=== PATIENT | female | born 1935 | race Caucasian/White ===

== ENCOUNTER 2017-06-07 11:25 | Emergency (ER) | payer MEDICARE, BC ==
[2017-06-07 12:52] LABS: Add Diff/Slide Review? Slide Review Added; Comments Flag Yes; Hematocrit 36 % (35-47); Hemoglobin 12.3 g/dl (12.0-16.0); Mean Corpuscular HGB Conc 34 g/dl (31-36); Mean Corpuscular Hemoglobin 32 pg (27-31); Mean Corpuscular Volume 95 fL (80-97); Mean Platelet Volume 8 um3 (7.4-10.4); Red Blood Count 3.81 10^6/ul (4.0-5.4); Red Cell Distribution Width 14 % (10.5-15); White Blood Count 9.9 10^3/ul (3.5-10.8)
[2017-06-07 13:08] LABS: Albumin 3.4 g/dL (3.2-5.2); BUN/Creatinine Ratio 19.9 (8-20); C Reactive Protein 113.86 mg/L (< 5.00); EGFR African American 38.1 (>60); EGFR Non-African American 29.6 (>60); Globulin 3.6 g/dL (2-4); Magnesium 1.6 mg/dL (1.9-2.7); Potassium 4.4 mmol/L (3.5-5.0); Total Bilirubin 0.8 mg/dL (0.2-1.0)
--- NOTE | 2017-06-07 13:11 | RAD ---
Indication: Weakness. Disoriented. Comparison: May 31, 2016 Technique: Sitting AP and lateral chest views. Report: Elevated lung volumes and patchy rarefaction of the interstitial markings. No pulmonary consolidation, focal pulmonary lesion, pleural effusion, or thorax. Tip of RIGHT side tunnel central venous catheter at the level of the superior vena cava directed central. Unchanged cardiomegaly. Prominent central pulmonary vasculature with peripheral attenuation. Mildly tortuous descending thoracic aorta. RIGHT axillary surgical clips. Advanced arthropathy of the shoulders. Surgical anchors at the LEFT humeral head. IMPRESSION: Stigmata of obstructive lung disease. Stigmata of probable pulmonary arterial hypertension.
[2017-06-07 13:27] LABS: Troponin I 0.06 ng/mL (<0.04)
[2017-06-07 13:48] LABS: TSH (Thyroid Stimulating Horm) 2.42 mcIU/mL (0.34-5.60)
[2017-06-07 15:29] LABS: Urine Bacteria 1+ (Absent); Urine Bilirubin Negative (Negative); Urine Glucose Negative (Negative); Urine Nitrite Positive (Negative)
[2017-06-07] MEDS ORDERED: Ciprofloxacin TAB* 500 MG PO ONE (15:37)
[2017-06-07] MEDS ORDERED: Ciprofloxacin 400MG IVPREMIX(* 400 MG/200 ML BAG IVPB ONE (16:54)
[2017-06-07] MEDS ORDERED: Ciprofloxacin 400MG IVPREMIX(* 400 MG/200 ML BAG ONE (16:58)
[2017-06-07] MEDS ORDERED: Albuterol/Ipratropium NEB.SOL* Albuterol 2.5 MG/Ipratropium 0.5 MG 3 ML INH ONE (19:37)
[2017-06-07] MEDS ORDERED: Ondansetron INJ* 2 MG/ML VIAL ONE (19:59)
[2017-06-07] MEDS ORDERED: Ondansetron INJ* 2 MG/ML VIAL IV ONE ×2 (20:14→20:48)
--- NOTE | 2017-06-07 21:06 | ED ---
Hallie Akins Gabriel, scribed for Luc Richardson MD on 06/07/17 at 1209 . Abdominal Pain/Female - HPI Summary HPI Summary: This patient is a 81 year old F [facility] [place] by daughter with a chief complaint of ABD/CV pain since a week ago. The patient rates the pain 5/10 in severity. Daughter reports the pt has increased weakness and more disoriented than usual. Daughter states she slid out her bed twice recently. Also she recently had her PCP tell her kidney function and this with the CV pain she is concerned for a kidney infection. Pt is disoriented and her speech makes no sense. - History of Current Complaint Chief Complaint: EDAltMentalStatus Stated Complaint: WEAKNESS,DISORIENTED Time Seen by Provider: 06/07/17 11:58 Hx Obtained From: Patient Hx From Patient Unobtainable Due To: Dementia Hx Last Menstrual Period: n/a Onset/Duration: Lasting Weeks - 1, Still Present Pain Intensity: 5 Pain Scale Used: 0-10 Numeric Radiates: Yes Radiates to: Other - CV Associated Signs and Symptoms: Positive: Other: - disoriented and weakness Allergies/Adverse Reactions: Allergies Allergy/AdvReac Type Severity Reaction Status Date / Time Codeine AdvReac Hallucinati Verified 06/07/17 17:10 ons Narcotic AdvReac Hallucinati Uncoded 06/07/17 17:10 ons PMH/Surg Hx/FS Hx/Imm Hx Endocrine/Hematology History: Denies: Hx Diabetes Cardiovascular History: Reports: Hx Hypertension Denies: Hx Pacemaker/ICD Respiratory History: Reports: Hx Asthma Sensory History: Reports: Hx Hearing Aid - will remove Neurological History: Reports: Hx Dementia Psychiatric History: Denies: Hx Panic Disorder - Cancer History Cancer Type, Location and Year: B/L breast - Surgical History Surgery Procedure, Year, and Place: breasts, bladder 2009, varicose veins, urethral sling, left hip ORIF 08/2012, PORT IN CHEST. Infectious Disease History: No Infectious Disease History: Denies: Traveled Outside the [place] in Last 30 Days - Family History Known Family History: Negative: Diabetes - Social History Alcohol Use: None Hx Substance Use: No Substance Use Type: Reports: None Hx Tobacco Use: No Smoking Status (MU): Never Smoked Tobacco Review of Systems Positive: Abdominal Pain - with CV pain Positive: Weakness Psychological: Other - increased disorientation/confusion All Other Systems Reviewed And Are Negative: Yes Physical Exam - Summary Physical Exam Summary: Appearance: The patient is well-nourished in no acute distress and in no acute pain. Skin: The skin is warm and dry and skin color reflects adequate perfusion. HEENT: ~The head is normocephalic and atraumatic. The pupils are equal and reactive. The conjunctivae are clear and without drainage. ~Nares are patent and without drainage. ~Mouth reveals moist mucous membranes and the throat is without erythema and exudate. ~The external ears are intact. The ear canals are patent and without drainage. The tympanic membranes are intact. Neck: the neck is supple with full range of motion and non-tender. There are no carotid bruits. ~There is no neck vein distension. Respiratory: Chest is non-tender. ~Lungs are clear to auscultation with slightly decreased breath spends of the left. Cardiovascular: Heart is regular rate and rhythm. ~There is no murmur or rub auscultated. ~ pulses are symmetrical and equal. Abdomen: The abdomen is soft and non-tender. ~There are normal bowel sounds heard in all four quadrants and there is no organomegaly palpated. Musculoskeletal: There is no back tenderness noted. ~Extremities are non-tender with full range of motion. ~There is good capillary refill. Chronic venous stasis in LE with mild edema Neurological: Patient is alert and oriented to person, place and time. ~The patient has symmetrical motor strength in all four extremities. ~Cranial nerves are grossly intact. Deep tendon reflexes are symmetrical and equal in all four extremities. Psychiatric: The patient has an appropriate affect and does not exhibit any anxiety or depression. Triage Information Reviewed: Yes Vital Signs On Initial Exam: Initial Vitals Temp Pulse Resp BP Pulse Ox 99.1 F 74 16 111/55 95 06/07/17 11:28 06/07/17 11:28 06/07/17 11:28 06/07/17 11:28 06/07/17 11:28 Vital Signs Reviewed: Yes Diagnostics - Vital Signs Vital Signs Temp Pulse Resp BP Pulse Ox 06/07/17 11:28 99.1 F 74 16 111/55 95 - Laboratory Lab Results: Lab Results 06/07/17 06/07/17 06/07/17 Range/Units 12:41 12:41 12:41 WBC 9.9 (3.5-10.8) 10^3/ul RBC 3.81 L (4.0-5.4) 10^6/ul Hgb 12.3 (12.0-16.0) g/dl Hct 36 (35-47) % MCV 95 (80-97) fL MCH 32 H (27-31) pg MCHC 34 (31-36) g/dl RDW 14 (10.5-15) % Plt Count 155 (150-450) 10^3/ul MPV 8 (7.4-10.4) um3 Neut % (Auto) 91.2 H (38-83) % Lymph % (Auto) 3.9 L (25-47) % Bradford % (Auto) 4.8 (1-9) % Eos % (Auto) 0 (0-6) % Baso % (Auto) 0.1 (0-2) % Absolute Neuts (auto) 9.0 H (1.5-7.7) 10^3/ul Absolute Lymphs (auto) 0.4 L (1.0-4.8) 10^3/ul Absolute Monos (auto) 0.5 (0-0.8) 10^3/ul Absolute Eos (auto) 0 (0-0.6) 10^3/ul Absolute Basos (auto) 0 (0-0.2) 10^3/ul Absolute Nucleated RBC 0 10^3/ul Nucleated RBC % 0 Sodium 133 (133-145) mmol/L Potassium 4.4 (3.5-5.0) mmol/L Chloride 98 L (101-111) mmol/L Carbon Dioxide 28 (22-32) mmol/L Anion Gap 7 (2-11) mmol/L BUN 33 H (6-24) mg/dL Creatinine 1.66 H (0.51-0.95) mg/dL Est GFR ( Amer) 38.1 (>60) Est GFR (Non-Af Amer) 29.6 (>60) BUN/Creatinine Ratio 19.9 (8-20) Glucose 105 H (70-100) mg/dL Lactic Acid 1.0 (0.5-2.0) mmol/L Calcium 9.0 (8.6-10.3) mg/dL Magnesium 1.6 L (1.9-2.7) mg/dL Total Bilirubin 0.80 (0.2-1.0) mg/dL AST 18 (13-39) U/L ALT 10 (7-52) U/L Alkaline Phosphatase 63 (34-104) U/L Troponin I 0.06 H* (<0.04) ng/mL C-Reactive Protein 113.86 H (< 5.00) mg/L Total Protein 7.0 (6.4-8.9) g/dL Albumin 3.4 (3.2-5.2) g/dL Globulin 3.6 (2-4) g/dL Albumin/Globulin Ratio 0.9 L (1-3) TSH 2.42 (0.34-5.60) mcIU/mL Urine Color Urine Appearance Urine pH (5-9) Ur Specific [place] (1.010-1.030) Urine Protein (Negative) Urine Ketones (Negative) Urine Blood (Negative) Urine Nitrate (Negative) Urine Bilirubin (Negative) Urine Urobilinogen (Negative) Ur Leukocyte Esterase (Negative) Urine WBC (Auto) (Absent) Urine RBC (Auto) (Absent) Ur Squamous Epith Cells (Absent) Urine Bacteria (Absent) Urine Glucose (Negative) 06/07/17 06/07/17 Range/Units 15:07 17:05 WBC (3.5-10.8) 10^3/ul RBC (4.0-5.4) 10^6/ul Hgb (12.0-16.0) g/dl Hct (35-47) % MCV (80-97) fL MCH (27-31) pg MCHC (31-36) g/dl RDW (10.5-15) % Plt Count (150-450) 10^3/ul MPV (7.4-10.4) um3 Neut % (Auto) (38-83) % Lymph % (Auto) (25-47) % Bradford % (Auto) (1-9) % Eos % (Auto) (0-6) % Baso % (Auto) (0-2) % Absolute Neuts (auto) (1.5-7.7) 10^3/ul Absolute Lymphs (auto) (1.0-4.8) 10^3/ul Absolute Monos (auto) (0-0.8) 10^3/ul Absolute Eos (auto) (0-0.6) 10^3/ul Absolute Basos (auto) (0-0.2) 10^3/ul Absolute Nucleated RBC 10^3/ul Nucleated RBC % Sodium (133-145) mmol/L Potassium (3.5-5.0) mmol/L Chloride (101-111) mmol/L Carbon Dioxide (22-32) mmol/L Anion Gap (2-11) mmol/L BUN (6-24) mg/dL Creatinine (0.51-0.95) mg/dL Est GFR ( Amer) (>60) Est GFR (Non-Af Amer) (>60) BUN/Creatinine Ratio (8-20) Glucose (70-100) mg/dL Lactic Acid (0.5-2.0) mmol/L Calcium (8.6-10.3) mg/dL Magnesium (1.9-2.7) mg/dL Total Bilirubin (0.2-1.0) mg/dL AST (13-39) U/L ALT (7-52) U/L Alkaline Phosphatase (34-104) U/L Troponin I 0.06 H* (<0.04) ng/mL C-Reactive Protein (< 5.00) mg/L Total Protein (6.4-8.9) g/dL Albumin (3.2-5.2) g/dL Globulin (2-4) g/dL Albumin/Globulin Ratio (1-3) TSH (0.34-5.60) mcIU/mL Urine Color Yellow Urine Appearance Cloudy Urine pH 6.0 (5-9) Ur Specific [place] 1.010 (1.010-1.030) Urine Protein 2+(100 mg/dl) H (Negative) Urine Ketones Negative (Negative) Urine Blood 2+ H (Negative) Urine Nitrate Positive H (Negative) Urine Bilirubin Negative (Negative) Urine Urobilinogen Negative (Negative) Ur Leukocyte Esterase 3+ H (Negative) Urine WBC (Auto) 3+(>20/hpf) H (Absent) Urine RBC (Auto) 2+(6-10/hpf) H (Absent) Ur Squamous Epith Cells Present H (Absent) Urine Bacteria 1+ H (Absent) Urine Glucose Negative (Negative) Result Diagrams: 06/07/17 12:41 12/10/17 12:41 Lab Statement: Any lab studies that have been ordered have been reviewed, and results considered in the medical decision making process. - Radiology CXR Radiology Interpretation Completed By: Radiologist - per radiologist, Stigmata of obstructive lung disease. Stigmata of probable pulmonary arterial hypertension. ED physician has reviewed this radiology report. 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 She is not speaking much. He daughter is doing most of the dictating. It was also discussed with the daughter the options of admitting her or sending her home. She wishes to send her home. Abdominal Pain Fem Course/Dx - Course Course Of Treatment: Ms. Light spent a good deal of time in the ED today. She had been seeming weaker and more confused to her daughter for the last day or so. She had been C/O left side pain and pointed vaguely to her left anterolateral lower chest wall. She wasn't really tender for me but her daughter reported that she had been tender there and more towards the back for her. She was found to have a low indeterminant troponin and a UTI. Her daughter is a RN and preferred to take her home if possible as she sundowns in the hospital. We struggled to try to make that happen but she was just a bit too sick. She is being admitted to the hospitalist service with a diagnosis of pyelonephritis. - Diagnoses Provider Diagnoses: Pyelonephritis - Critical Care Time Critical Care Time: 30-74 min Discharge - Discharge Plan Condition: Stable Disposition: HOME Prescriptions: Nitrofurantoin Monohyd Macro [Macrobid] 100 mg PO BID #10 cap Nitrofurantoin Monohyd Macro [Macrobid] 100 mg PO BID #20 cap Patient Education Materials: Nitrofurantoin (By mouth), Kidney Infection (ED) Referrals: Vane Butler MD [Primary Care Provider] - 3 Days Additional Instructions: Return to the emergency department for new or worsening symptoms. The documentation as recorded by the Hallie stewart Gabriel accurately reflects the service I personally performed and the decisions made by me, Luc Richardson MD.
[2017-06-07] MEDS ORDERED: Ziprasidone IM INJ* 20 MG/ML VIAL IM ONE (21:24)
[2017-06-07] MEDS ORDERED: Acetaminophen SUPP* 650 MG SUPP PR PRN (21:28)
[2017-06-07] MEDS ORDERED: NS 0.9% 1000 ML* 1,000 ML IV SCH (21:30)
[2017-06-07] MEDS ORDERED: Acetaminophen SUPP* 650 MG SUPP ONE (21:35)
[2017-06-07] MEDS ORDERED: Albuterol 2.5 MG/3 ML NEB.SOL* (0.083%) INH PRN (21:41)
[2017-06-07] MEDS ORDERED: Digoxin IV* 0.5 MG/2 ML AMP (0.25 MG/ML) IV SLOW PU SCH (21:41)
[2017-06-07] MEDS ORDERED: Magnesium Sulfate 2 GM IV* 2 GM/50 ML BAG IVPB ONE (21:42)
[2017-06-07 21:58] LABS: Digoxin 2.4 ng/ml (0.8-2.0)
[2017-06-07] MEDS ORDERED: Heparin VIAL(*) 5000 UNITS/ML VIAL (FIVE THOUSAND) SUBCUT SCH (22:00)
[2017-06-07] MEDS ORDERED: cefTRIAXone(*) 1 GM in NS 0.9% 50 ML* 50 ML IVPB SCH (22:00)
[2017-06-07] MEDS ORDERED: Piperacillin/Tazobac ADVAN(*) 3.375 GM in NS 0.9% 100 ML* 100 ML IVPB ONE (22:25)
[2017-06-07] MEDS ORDERED: Norepinephrine 16MCG/ML IVPRE* 4,000 MCG/250 ML BAG IV ONE (23:21)
[2017-06-07] MEDS: NS 0.9% 1000 ML* 2,000 ML IV ONE (23:24)
[2017-06-07] MEDS ORDERED: NS 0.9% 250 ML* 246 ML with Norepinephrine VIAL* 4 MG IV ONE ×2 (23:45)
[2017-06-08] MEDS ORDERED: Diltiazem TAB* 30 MG PO SCH
[2017-06-08] MEDS ORDERED: Norepinephrine 16MCG/ML IVPRE* 4,000 MCG/250 ML BAG IV SCH ×3 (01:00→02:00)
[2017-06-08] MEDS ORDERED: NS 0.9% 1000 ML* 1,000 ML IV ONE (01:10)
[2017-06-08 01:56] VITALS: BP 96/69
--- NOTE | 2017-06-08 04:14 | CONS ---
CC: Dr. Butler * CONSULTATION REPORT: DATE OF CONSULT: 06/07/17 REQUESTING PHYSICIAN: Dr. Richardson ATTENDING PHYSICIAN WHILE IN HOSPITAL: Travis Cordoba MD (report dictated by Torres Vazquez NP) REASON FOR MEDICAL CONSULTATION: Evaluation of patient for admission. HISTORY OF PRESENT ILLNESS: Ms. Light is an 81-year-old female patient with a significant history of dementia, AFib, asthma, CAD, hypertension, breast cancer and arthritis. She comes in to the ED today, the patient really is not able to give much history at this point as she is delirious and she has a history of dementia, most of the history is obtained from her daughter Meyrl. The patient apparently since this morning and yesterday last night complaining of left flank pain, left hip pain, daughter evaluated her and pressed on her left flank and back and she had a significant amount of discomfort. She was concerned today when the patient developed a fever and she was becoming more confused. She was concerned that maybe there was something wrong with her kidneys and the patient's daughter brought her in for evaluation. In the ED, it was noted that she actually looked well initially when she was evaluated and she was going to be sent home. Prior to discharge, she started having vomiting and spiked a fever and we were asked to evaluate for admission. PAST MEDICAL HISTORY: Significant for, 1. AFib. 2. Asthma. 3. CAD. 4. Hypertension. 5. Breast cancer. 6. Arthritis. PAST SURGICAL HISTORY: The patient has had a left hip ORIF and she has had a bladder sling. HOME MEDICATIONS: Include, 1. Warfarin 4 mg p.o. at 1700 2. Digoxin 0.125 mg p.o. daily. 3. Ventolin 1 puff daily as needed. 4. Zoloft 50 mg daily. 5. Lisinopril 10 mg daily. 6. Diltiazem 180 mg daily. 7. B12 1000 mcg p.o. daily. ALLERGIES TO MEDICATIONS: Include CODEINE. FAMILY HISTORY: The daughter states that patient's mother during childbirth and the father's history with no reports of cancer, stroke, diabetes or heart disease. SOCIAL HISTORY: The patient is a nonsmoker and does not drink alcohol. Surrogate decision maker is her daughter Meryl. REVIEW OF SYSTEMS: Unable to be obtained from the patient, but the daughter does state that there is reports of flank pain in addition to this, also reports of fever. I am unable to attempt a complete review because of the underlying delirium and dementia. PHYSICAL EXAMINATION: Blood pressure 134/92, pulse 117, respirations 21, O2 sat at 1999 was 87%, and is now 98%. Her temperature now is 103. When she first came in, her temperature was 99.1. Blood pressure 111/55, pulse 74, respirations 16, O2 sat 95%. General: At this time, Ms. Light is an 81-year- old female patient. She is sitting in the ER stretcher. She does appear to be having rigors. She is shaking. She appears to be on a moderate amount of distress. She does appear to be restless. HEENT: Atraumatic. Eyes: Sclerae anicteric. Not pale. Throat: Oral mucosa appears to be dry. No oropharyngeal erythema. Heart: Sounds S1 and S2, irregularly irregular rate. No murmurs, rubs or gallops. Lungs: Clear to auscultation bilaterally. No wheezes, rales or rhonchi. Abdomen: Soft, flat. There is CVA tenderness on the left side. Extremities: Pulses are 2+ throughout. No peripheral edema. Neurologically: She will awaken to her name only, but she is again delirious. She is restless. She is calling out. She had no gross obvious focal deficits. Her skin was intact. LABORATORY DATA/DIAGNOSTIC DATA: WBC 9.9, RBC at 3.81, hemoglobin 12.3, hematocrit 36, platelet count of 155. INR 3.5. Sodium 133, potassium 4.4, chloride 98, bicarb 28, BUN 33, creatinine 1.66, glucose 105. Lactic 1.1, repeat lactic at 2100 was 7.9. Her calcium was 9, mag 1.6. Total bili 0.8, AST 18, ALT 10, alk phos 63. Troponin was 0.06. CRP was 113. Albumin was 3.4. TSH was 2.42. Urine showed 2+ protein, 2+ blood, positive nitrite, 2+ leukocyte esterase. The digoxin level was 2.4. She did have a chest x-ray, stigmata of chronic obstructive lung disease, stigmata of probable pulmonary arterial hypertension. She had an EKG initially when she came into the ED which showed atrial fibrillation with right bundle- branch block. She had T-wave inversions in the V1, 2 and 3. She has had inversions in the past. They are pretty more pronounced now. No ST elevations were noted. The AFib is not new. She had a renal ultrasound obtained, we are awaiting official imaging, but does appear that her ureter on the left side does appear to be enlarged. Old medical records were reviewed. ASSESSMENT: Ms. Light is an 81-year-old female patient coming in to the ED today with complaints of left flank pain and found to have a urinary tract infection. She was initially going to be discharged; however, while down in the ED, around 9 o'clock tonight, she started vomiting. In addition to this, was noted to have a significant fever of 103. She had a significant CVA tenderness , we were asked to evaluate. I evaluated the patient and while evaluating her again, she appeared to be septic and my concern was the fact that she has a urinary tract infection, significant left flank pain and there was blood in the urine, I want to make sure she had no stone or any hydronephrosis or hydroureter that would make the patient concern for obstruction as we do not have urology backup. She underwent an ultrasound and appeared that the ureter in the left side did appear to have a hydroureter; we are awaiting official report. The patient because she became septic, there was concern that this appears to be obstructive uropathy, she would need Urology, possible stent or nephrostomy tube, unfortunately, we are not able to offer that for the patient at this moment, because we do no not have Urology on- call. PLAN: I did discuss with Dr. Richardson and my attending Dr. Cordoba. I suggested giving the patient 2 L of fluid, this was before the lactic of 7.9 came back. I discussed with them, give 2 L of fluid, repeat the lactic, which is now coming back at 7.9. We placed her on Vapotherm now knowing the lactic of 7.9, give her an additional liter of fluids and then repeat that lactic in 2 hours, then I would recommend transfer to [facility] for further care. She does appear to be in severe sepsis, in septic shock. Fortunately, her blood pressure is holding, but I would like to again be aggressive. The family will be open to intubation, they would be open to possible nephrostomy tube, but again at this point, the patient needs to be transferred for high level of care for urology backup. I discussed this with Dr. Cordoba and Dr. Richardson, they are in agreement. I will continue aggressive sepsis treatment. I also would recommend giving her a dose of Zosyn and to continue to follow. I also did give her a dose of Geodon because of the extreme restlessness. I wanted to try to reduce her metabolic demand with her being so restless, agitated and climbing out of the bed. This would only increase the work of breathing, increase the heart rate and at this point because she is in severe sepsis, septic shock, I wanted to take that work away, she is now resting comfortably. She is breathing again most recently in the upper 20 and I do recommend Vapotherm early. It will be aggressive to try to avoid an intubation and I would recommend again another liter of fluids, Zosyn and transfer to higher level of care. TIME SPENT: Time spent on the consult, which is critical care time, was 60 minutes. Greater than half the time was spent [id number] with the patient obtaining my history and physical, the other half time was spent going over the plan of care with the patient. I did discuss the plan of care with my attending Dr. Cordoba, he is in agreement. TORRES VAZQUEZ NP [id number]/[facility] #: [id number] MTDBolivar
--- NOTE | 2017-06-08 07:20 | RAD ---
INDICATION: Pyelonephritis. COMPARISON: There are no prior studies available for comparison. TECHNIQUE: Multiple real-time images of the kidneys were obtained. FINDINGS: The kidneys are small in size and increased in echogenicity. The right kidney measured 7.6 x 3.8 x 3.8 cm and the left kidney measured 8.9 x 3.6 x 4.7 cm. No significant focal renal abnormality is seen. There is dilatation of the left renal calyces and renal pelvis consistent with moderate to severe hydronephrosis. In addition there is debris and echogenic material within the renal pelvis possibly representing blood products versus infection. IMPRESSION: 1. MODERATE TO SEVERE LEFT HYDRONEPHROSIS WITH ECHOGENIC DEBRIS WITHIN THE RENAL PELVIS SUGGESTIVE OF BLOOD PRODUCTS OR INFECTION. RECOMMEND CLINICAL CORRELATION. 2. SMALL KIDNEYS AND FINDINGS CONSISTENT WITH MEDICAL RENAL DISEASE.
--- NOTE | 2017-06-08 07:40 | RAD ---
INDICATION: Left flank abdominal pain. COMPARISON: Correlation is made with a renal ultrasound study of the same date. TECHNIQUE: A CT scan of the abdomen and pelvis was performed without intravenous or oral contrast. Contiguous axial sections were obtained from the lung bases through the symphysis pubis. Images were reconstructed in the coronal and sagittal planes. FINDINGS: The lung bases appear clear with the exception of minimal subsegmental atelectasis. There is a small left pleural effusion. The liver and spleen are normal in size without significant focal abnormality on this noncontrast study. There is increased density in the dependent portion of the gallbladder most consistent with gallstones. No gallbladder thickening or pericholecystic fluid is seen. The pancreas appears to be within normal limits on this unenhanced study. The adrenal glands and right kidney appear to be within normal limits. There is dilatation of the left renal calyces and pelvis. The renal pelvis is markedly distended. The left ureter appears nondistended. No renal or bladder calculi are seen. The abdominal aorta is tortuous and normal in caliber. There is moderate to severe calcific plaque present. No significant enlarged retroperitoneal lymph nodes are seen. There is a small hiatal hernia present. The stomach, small and large bowel appear nondistended. There is a moderate amount retained stool present. The appendix is not visualized. There are scattered diverticuli within the descending and sigmoid colon. There is no evidence for diverticulitis or colitis. The uterus is normal in size. No free intraperitoneal air or fluid is seen. There is a mild chronic appearing compression fracture of the superior endplate of the L4 vertebral body. There is a intramedullary supriya and femoral head nail present in the proximal left femur consistent with a prior fracture reduction. IMPRESSION: 1. SMALL LEFT PLEURAL EFFUSION. 2. MODERATE TO SEVERE LEFT HYDRONEPHROSIS WITH THE OBSTRUCTION AT THE LEVEL OF THE URETEROPELVIC JUNCTION. NO CALCULI ARE SEEN. 3. CHOLELITHIASIS. 4. MILD CHRONIC COMPRESSION FRACTURE OF THE L4 VERTEBRAL BODY.
[2017-06-08] MEDS ORDERED: Sertraline* 50 MG TAB PO SCH (09:00)
[2017-06-08] MEDS ORDERED: Warfarin TAB(*) 1 MG PO SCH (17:00)
--- NOTE | 2017-06-09 05:33 | ED ---
Jermaine Akins Thomas, deondreibed for Ginny Crouch MD on 06/07/17 at 2354 . Progress - Progress Note Progress Note: The patient is a sign out from Dr. Crouch at shift change, pending CT Abd/Pel and awaiting transfer. US Abdomen. Interpreted by radiologist. Impression: The liver is mildly enlarged measuring 17.8 cm in length with incrased echogenicity compatible with steatosis. No intrahepatic biliary dilatation. No hepatic masses visualized. There are no stones or sludge seen in the gallbladder. The gallbladder wall is normal in thickness measuring 2.4 mm. No pericholecystic fluid. Negative sonographic Flores sign reported. Mild prominence of the common bile duct measuring up to 6.5 mm. No obstructing stones seen within the visualized portions of the duct. Visualized portions of the pancreatic head and body appear grossly normal. The tail is partially obscured by overlying bowel gas. The right kidney is unremarkable. CT Abd/Pel. Interpreted by radiology. Impression: The heart is enlarged. There are coronary artery calcifications. Small left pleural effusion with overlying atelectasis and scarring at the left lung base. Scattered calcifications at the lung bases compatible with granulomas. Small hiatal hernia. There is severe left hydronephrosis and markedly distended extrarenal pelvis transitioning to a relatively decompressed ureter without evidence of an obstructing stone. Proximal structure is a consideration. There is perinephric standing. The right kidney is unremarkable. The liver, gallbladder, spleen, pancreas, and adrenal glands are without gross abnormality within the limitations of a noncontrast CT. There is no bowel distention. I spoke with Dr. Garcia, urology, and 00:15. He tells me that the patient needs to be admitted to medicine. The patient was admitted to Dr. Duncan. Re-Evaluation - Re-Evaluation First Eval Re-Evaluation Time: 20:14 Change: Worse Comment: After the nebulizer patient had an episode of emesis and got very shaky. She is not speaking much. He daughter is doing most of the dictating. It was also discussed with the daughter the options of admitting her or sending her home. She wishes to send her home. Course/Dx - Diagnoses Provider Diagnoses: Urosepsis, Left pyelonephritis, Obstructive uropathy The documentation as recorded by the Jermaine stewart Thomas accurately reflects the service I personally performed and the decisions made by me, Ginny Crouch MD.
--- NOTE | 2017-06-10 01:28 | PN ---
Progress Note - Progress Note Date of Service: 06/10/17 Note: Patient urine culture grew E coli >100,000. patient was transferred to [facility]. nelly salazar nursed called [facility] with results of urine and blood cultures on Thursday morning so no further action at this time.
--- NOTE | 2017-06-10 12:37 | ED ---
Progress - Progress Note Progress Note: The patient is a sign out from Dr. Crouch at shift change, pending CT Abd/Pel and awaiting transfer. US Abdomen. Interpreted by radiologist. Impression: The liver is mildly enlarged measuring 17.8 cm in length with incrased echogenicity compatible with steatosis. No intrahepatic biliary dilatation. No hepatic masses visualized. There are no stones or sludge seen in the gallbladder. The gallbladder wall is normal in thickness measuring 2.4 mm. No pericholecystic fluid. Negative sonographic Flores sign reported. Mild prominence of the common bile duct measuring up to 6.5 mm. No obstructing stones seen within the visualized portions of the duct. Visualized portions of the pancreatic head and body appear grossly normal. The tail is partially obscured by overlying bowel gas. The right kidney is unremarkable. CT Abd/Pel. Interpreted by radiology. Impression: The heart is enlarged. There are coronary artery calcifications. Small left pleural effusion with overlying atelectasis and scarring at the left lung base. Scattered calcifications at the lung bases compatible with granulomas. Small hiatal hernia. There is severe left hydronephrosis and markedly distended extrarenal pelvis transitioning to a relatively decompressed ureter without evidence of an obstructing stone. Proximal structure is a consideration. There is perinephric standing. The right kidney is unremarkable. The liver, gallbladder, spleen, pancreas, and adrenal glands are without gross abnormality within the limitations of a noncontrast CT. There is no bowel distention. I spoke with Dr. Garcia, urology, and 00:15. He tells me that the patient needs to be admitted to medicine. The patient was admitted to Dr. Duncan. UPDATE: Pt's prelim aerobic blood cx w/ e. coli. Urine cx reveals 100,000 e. coli as well w/ sens. Pt was transferred to [facility]. Will fax results. joe Chen, marcel. Re-Evaluation - Re-Evaluation First Eval Re-Evaluation Time: 20:14 Change: Worse Comment: After the nebulizer patient had an episode of emesis and got very shaky. She is not speaking much. He daughter is doing most of the dictating. It was also discussed with the daughter the options of admitting her or sending her home. She wishes to send her home. Course/Dx - Course Course Of Treatment: Ms. Light spent a good deal of time in the ED today. She had been seeming weaker and more confused to her daughter for the last day or so. She had been C/O left side pain and pointed vaguely to her left anterolateral lower chest wall. She wasn't really tender for me but her daughter reported that she had been tender there and more towards the back for her. She was found to have a low indeterminant troponin and a UTI. Her daughter is a RN and preferred to take her home if possible as she sundowns in the hospital. We struggled to try to make that happen but she was just a bit too sick. She is being admitted to the hospitalist service with a diagnosis of pyelonephritis. - Diagnoses Provider Diagnoses: Urosepsis, Left pyelonephritis, Obstructive uropathy - Critical Care Time Critical Care Time: 30-74 min
== END 2017-06-08 01:58 | disposition short-term general hospital (02) ==
LOC: ED 11:25
DX: N12 Tubulo-interstitial nephritis, not specified as acute or chronic (principal); N13.9 Obstructive and reflux uropathy, unspecified; Z86.79 Personal history of other diseases of the circulatory system; R10.9 Unspecified abdominal pain; R53.1 Weakness
CPT/HCPCS: 36415; 71020; 74176; 76775; 80053; 80162; 81003; 81015; 83605; 83735; 84443; 84484; 85025; 85610; 86140; 87040; 87077; 87086; 87186; 87205; 93005; 94640; 96365; 96366; 96375; 99285; A9270-GY; J0744; J2405; J2543; J3475; J3486

== ENCOUNTER 2017-06-24 01:09 | Emergency (ER) | payer MEDICARE, BC ==
--- NOTE | 2017-06-24 03:21 | ED ---
Jarrett Akins Tecjoon scribmolly for Ginny Crouch MD on 06/24/17 at 0140 . Complex/Multi-Sys Presentation - HPI Summary HPI Summary: This patient is a 81 year old female BIBA to [facility] accompanied by daughter with a chief complaint of cuts on nephrostomy tube to left side since today at 0000. Patient has had the nephrostomy tube for 2 weeks. Patients daughter states that patient has been irritated by the tube for a few days. Patients daughter states that she cut the tube herself with nail clippers, but claims the patient is unsure of the memory. Patients daughter states that they plan on putting in a stent on June 30. Patient has a hx of dementia. Patient denies fever. - History Of Current Complaint Chief Complaint: EDGeneral Time Seen by Provider: 06/24/17 01:19 Hx Obtained From: Patient, Family/Supervisor Gear Repair Hx From Patient Unobtainable Due To: Dementia Onset/Duration: Still Present Severity Currently: None Location: Negative Related History: Other - nephostomy tube installed 2 weeks ago. - Allergies/Home Medications Allergies/Adverse Reactions: Allergies Allergy/AdvReac Type Severity Reaction Status Date / Time Diphenhydramine Allergy Hallucinati Verified 06/07/17 23:22 [From Benadryl] ons Codeine AdvReac Hallucinati Verified 06/07/17 17:10 ons Narcotic AdvReac Hallucinati Uncoded 06/07/17 17:10 ons PMH/Surg Hx/FS Hx/Imm Hx Previously Healthy: No Endocrine/Hematology History: Denies: Hx Diabetes Cardiovascular History: Reports: Hx Hypertension, Other Cardiovascular Problems/ Disorders - PT'S DAUGHTER STATES "VALVE PROBLEM." Denies: Hx Pacemaker/ICD Respiratory History: Reports: Hx Asthma Sensory History: Reports: Hx Hearing Aid - will remove Neurological History: Reports: Hx Dementia Psychiatric History: Denies: Hx Panic Disorder - Cancer History Cancer Type, Location and Year: B/L breast - Surgical History Surgery Procedure, Year, and Place: breasts, bladder 2009, varicose veins, urethral sling, left hip ORIF 08/2012, PORT IN CHEST. Infectious Disease History: No Infectious Disease History: Denies: Traveled Outside the [place] in Last 30 Days - Family History Known Family History: Negative: Diabetes - Social History Alcohol Use: None Hx Substance Use: No Substance Use Type: Reports: None Hx Tobacco Use: No Smoking Status (MU): Never Smoked Tobacco Review of Systems Negative: Fever Genitourinary: Other - cuts to nephrostomy tube Positive: Other - dementia All Other Systems Reviewed And Are Negative: Yes Physical Exam - Summary Physical Exam Summary: VITAL SIGNS: Reviewed. GENERAL: Patient is a well-developed and nourished male who is lying comfortable in the stretcher. Patient is not in any acute respiratory distress. HEAD AND FACE: No signs of trauma. No ecchymosis, hematomas or skull depressions. No sinus tenderness. EYES: PERRLA, EOMI x 2, No injected conjunctiva, no nystagmus. EARS: Hearing grossly intact. Ear canals and tympanic membranes are within normal limits. MOUTH: Oropharynx within normal limits. NECK: Supple, trachea is midline, no adenopathy, no JVD, no carotid bruit, no c- spine tenderness, neck with full ROM. CHEST: Symmetric, no tenderness at palpation LUNGS: Clear to auscultation bilaterally. No wheezing or crackles. CVS: Regular rate and rhythm, S1 and S2 present, no murmurs or gallops appreciated. ABDOMEN: Soft, non-tender. No signs of distention. No rebound no guarding, and no masses palpated. Bowel sounds are normal. BACK: Patient has a nephrostomy tube on left side, which is in place, but there is a tube proximal to the left side, which is leaking urine. EXTREMITIES: FROM in all major joints, no edema, no cyanosis or clubbing. NEURO: Patient is alert and oriented to her name. Pt has demetia SKIN: Dry and warm Triage Information Reviewed: Yes Vital Signs On Initial Exam: Initial Vitals Temp Pulse Resp BP Pulse Ox 97.5 F 77 16 145/82 94 06/24/17 01:23 06/24/17 01:23 06/24/17 01:23 06/24/17 01:23 06/24/17 01:23 Vital Signs Reviewed: Yes Diagnostics - Vital Signs Vital Signs Temp Pulse Resp BP Pulse Ox 06/24/17 01:23 97.5 F 77 16 145/82 94 - Laboratory Lab Statement: Any lab studies that have been ordered have been reviewed, and results considered in the medical decision making process. Complex Multi-Symp Course/Dx Course Of Treatment: This patient is a 81 year old female BIBA to [facility] accompanied by daughter with a chief complaint of cuts on nephrostomy tube to left side since today at 0000. Patient has had the nephrostomy tube for 2 weeks. Patients daughter states that patient has been irritated by the tube for a few days. Patients daughter states that she cut the tube herself with nail clippers, but claims the patient is unsure of the memory. Patients daughter states that they plan on putting in a stent on June 30. Patient has a hx of dementia. Patient denies fever. We discussed patient care with Dr. Sunshine (Urologist) at 0220and they said that patient only needs nephrostomy tube replaced. We will speak to hospitalist to get them admitted. They will be referred to IR tomorrow. We discussed patient care with Dr. Song (hospitalist ) at 0240 to admit for nephrostomy tube replacement tomorrow by IR. He stated that, hes not sure that if there is any interventional radiologist avail tomorrow. He recommended to transfer to where she can get nephrostomy tube replaced. I called [facility] at [address] Rai (hospitalist). She agrees to accept the patient and patient will be transferred. - Diagnoses Provider Diagnoses: Difficulty managing nephrostomy care - Physician Notifications Instructed by Provider To: Transfer - [facility] Discharge - Discharge Plan Condition: Stable Disposition: TRANS HIGHER LVL OF CARE FAC Referrals: Vane Butler MD [Primary Care Provider] - Consult Consult: We discussed patient care with Dr. Sunshine (Urologist) at 0220and they said that patient only needs nephrostomy tube replaced. We will speak to hospitalist to get them admitted. They will be referred to IR tomorrow. We discussed patient care with Dr. Song (hospitalist) at 0240 to admit for nephrostomy tube replacement tomorrow by IR. He stated that, hes not sure that if there is any interventional radiologist avail tomorrow. He recommended to transfer to where she can get nephrostomy tube replaced. I called [facility] at [address] Rai ( hospitalist). She agrees to accept the patient and patient will be transferred. The documentation as recorded by the Jarrett stewart Tecjoon accurately reflects the service I personally performed and the decisions made by , Ginny Crouch MD.
[2017-06-24 04:52] VITALS: BP 157/69
== END 2017-06-24 05:13 | disposition short-term general hospital (02) ==
LOC: ED 01:09
DX: Z43.6 Encounter for attention to other artificial openings of urinary tract (principal); Z86.59 Personal history of other mental and behavioral disorders
CPT/HCPCS: 99284

== ENCOUNTER 2017-08-05 09:57 | Inpatient (IN) | payer MEDICARE, BC ==
[2017-08-05] MEDS ORDERED: cefTRIAXone(*) 1 GM in NS 0.9% 50 ML* 50 ML IVPB ONE (10:08)
[2017-08-05] MEDS ORDERED: LORazepam INJ* 2 MG/ML 1 ML VIAL IV PUSH ONE (10:31)
--- NOTE | 2017-08-05 10:37 | RAD ---
INDICATION: Shortness of breath. COMPARISON: Comparison is made with a prior chest x-ray study from June 07, 2017. TECHNIQUE: A portable view of the chest was obtained. FINDINGS: The heart is moderately enlarged and unchanged from the prior exam. The lungs are hyperinflated. There is a small infiltrate at the right lung base which is new. There is a central venous catheter on the right side which projects in the right paratracheal region. IMPRESSION: SMALL RIGHT BASILAR INFILTRATE, NEW.
--- OUTSIDE RECORDS SUMMARY | 2017-08-05 10:39 | XMS REPORT ---
:1935 External Reference #:[id number] Author Organization [facility] Address [address] [place] [address] Phone [phone] Care Team Providers Name Role Phone Vane Butler M.D. Care Team Information District Recruiter Unavailable Vane Butler M.D. Primary Care Physician Unavailable Payers Type Date Identification Numbers Payment Provider Subscriber Medicare Primary Effective: Policy Number: [facility] Carli Light 2000 [id number] [employer] PayID: [id number] [address] [place] [address] [facility] Part B Effective: Policy Number: BC/BS Of JOSIAH Contreras 2011 [id number] Kuldeep PayID: [id number] [address] [address] [place] [address] Problems Date Description Provider Status Onset: 07/19/2013 Allergic rhinitis due to pollen SHIRLEY Arroyo Active Onset: 07/19/2013 Allergic rhinitis SHIRLEY Arroyo Active Onset: 07/19/2013 Extrinsic asthma without status SHIRLEY Arroyo Active asthmaticus Onset: 09/18/2016 Mild persistent asthma JOYCE Kraft Active Onset: 01/01/2015 Body Mass Index Between 19-24 Adult Rogelio Eng M.D. Active Onset: 01/01/2015 Needs influenza immunization Rogelio Eng M.D. 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 Home Environment Has a window air conditioner Home Environment Finished Basement Partial Home Environment The basement is wet and dehumidifier used Home Environment The basement is wet and sump pump used Home Environment Down Comforter Home Environment Mattress is 1 year old Home Environment Mattress is encased in an allergy proof case Home Environment Regular Mattress Home Environment Pillows are polyester Home Environment Pillows contain feathers Home Environment Pillows are encased in an allergy proof case Home Environment Uses a dehumidifier Home Environment There are draperies in the home Home Environment The home is suman Home Environment The floors are carpeted Home Environment The floors are tile Home Environment The floors are wood Home Environment Uses oil heating Home Environment [place] Home Environment Water Source: Well Smoke-Free Home is smoke-free Pets 1 cat Pets Animals sleep in bedroom Occupation Retired Condominium Property Manager ETOH Use Rarely consumes alcohol Smoking Patient has never smoked Recreational Drug Use Never Used Drugs Allergies, Adverse Reactions, Alerts Date Description Reaction Status Severity Comments 03/30/2008 Codeine redness on neck and face active 06/12/2014 Narcotics active hallucinations 09/18/2016 Benadryl rash active Medications Medication Date Status Form Strength Qnty SIG Indications Ordering Provider Xopenex HFA 07/20/ Active Aerosol 45mcg/Act 15gm 2 puffs Z23 Annika 2018 inhalation [place], every 4 hours SHIP FASTENER-C as needed or 15 minutes prior to exercise Optichamber 01/30/ Active Misc 1units use with all Kelly Advantage 2014 inhalers [place], SHIP FASTENER-C Alvesco 01/30/ Active Aerosol 160mcg/Act 6units 2 puff to be Annika 2013 used every 12 [place]rich, hours 90 day SHIP FASTENER-C supply Ventolin HFA 07/12/ Active Aerosol 108(90Base 1units 2 inhalations Annika 2013 ) mcg/Act every 4 -6 U[place]rich, hours as SHIP FASTENER-C needed for coughing, wheezing or shortness of breath Digox / Active Tablets 125mcg Take 1 Tablet Unknown 0000 By Mouth Every Day. Lisinopril / Active Tablets 5mg TK 1 T qam Unknown 0000 And SS T qpm Warfarin / Active Tablets 5mg TK 1 T PO qd Unknown Sodium 0000 Lidocaine / Active Patches 5% Unknown 0000 Cardizem / Active Tablets 120mg once a day Unknown 0000 Quetiapine / Active Tablets 25mg 1/2 tab daily Unknown Fumarate 0000 Myrbetriq / Active Tablets 25mg 1 by mouth Unknown 0000 ER 24HR every day Medications Administered in Office Medication Date Status Form Strength Qnty SIG Indications Ordering Provider Celestone/Ronen Administered Injection [facility] [id number] 1 M.Mitchell Immunizations CPT Code Status Date Vaccine Lot # [id number] Given 03/29/2013 Influenza Vaccine [id number] Given 06/29/2011 Pneumococcal Vaccine Vital Signs Date Vital Result Comment 07/20/2017 Height 59 inches 4'11" Weight 122.00 lb Weight in kg's 55.339 Respiratory Rate 22 /min Heart Rate 78 /min O2 % BldC Oximetry 95 % BP Systolic 131 mmHg BP Diastolic 77 mmHg Asthma Control Test 9 BMI (Body Mass Index) 24.6 kg/m2 09/18/2016 Height 59 inches 4'11" Weight 125.00 lb Weight in kg's 56.700 Respiratory Rate 16 /min Heart Rate 65 /min O2 % BldC Oximetry 96 % BP Systolic 137 mmHg BP Diastolic 71 mmHg Asthma Control Test 23 BMI (Body Mass Index) 25.2 kg/m2 01/01/2015 Height 59 inches 4'11" Weight 119.00 lb Weight in kg's 53.978 Respiratory Rate 18 /min Heart Rate 79 /min O2 % BldC Oximetry 97 % BP Systolic 124 mmHg BP Diastolic 69 mmHg Asthma Control Test 23 BMI (Body Mass Index) 24.0 kg/m2 06/12/2014 Height 59 inches 4'11" Weight 124.00 lb Weight in kg's 56.246 Respiratory Rate 22 /min Heart Rate 67 /min O2 % BldC Oximetry 97 % BP Systolic 140 mmHg BP Diastolic 90 mmHg Asthma Control Test 22 BMI (Body Mass Index) 25.0 kg/m2 03/13/2014 Height 60 inches 5'0" Weight 126.00 lb Weight in kg's 57.154 Respiratory Rate 16 /min Heart Rate 66 /min O2 % BldC Oximetry 96 % BP Systolic 140 mmHg BP Diastolic 70 mmHg Asthma Control Test 19 BMI (Body Mass Index) 24.6 kg/m2 01/30/2014 Height 60 inches 5'0" Weight 126.00 lb Weight in kg's 57.154 Respiratory Rate 16 /min Heart Rate 65 /min O2 % BldC Oximetry 97 % Asthma Control Test 23 BMI (Body Mass Index) 24.6 kg/m2 03/22/2013 Height 61.5 inches 5'1.50" Weight 148.00 lb Weight in kg's 67.133 Respiratory Rate 18 /min Heart Rate 144 /min O2 % BldC Oximetry 98 % BMI (Body Mass Index) 27.5 kg/m2 Results Description No Information Procedures Date CPT Code Description Status 07/20/2017 31647 Ippb Completed 09/18/2016 88112 Pre PFT Completed 01/01/2015 54506 Pre PFT Completed 06/12/2014 87951 Pulmonary Function Test Completed 01/30/2014 22915 Pulmonary Function Test Completed 12/28/2008 54603 Pulmonary Function Test Completed 04/06/2008 75605 Skin Test Scratch # Of Units ____ Completed Encounters Type Date Location Provider CPT E/M Dx Office Visit 07/20/2017 11:20a JOYCE Anne 27176 Z23 J45.30 J30.1 J30.2 Office Visit 09/18/2016 11:40a [place] JOYCE Kraft 13537 J45.30 J30.1 J30.2 Z68.25 Office Visit 01/01/2015 11:40a Ishmael Eng M.D. 52977 493.00 477.0 V85.1 V04.81 Office Visit 06/12/2014 11:00a Ishmael Eng M.D. 67975 493.00 477.0 477.8 Office Visit 03/13/2014 11:20a Ishmael Eng M.D. 63463 493.00 Office Visit 01/30/2014 11:40a [place] ASH Garcia 26319 477.0 477.8 493.00 Office Visit 06/08/2012 11:40a [place] [facility] Triny Burroughs M.D. 83344 477.0 477.8 493.90 493.00 Office Visit 03/04/2011 10:40a [place] [facility] Rhiannon Chua M.D. 07084 477.0 477.8 493.90 493.00 Office Visit 03/21/2010 11:00a [place] [facility] Kelby Tran M.D. 91570 477.0 477.8 493.90 493.00 Office Visit 11/13/2009 3:40p [place] [facility] Triny Burroughs M.D. 94448 477.0 477.8 493.90 493.00 Office Visit 09/27/2009 3:20p [place] [facility] Kelby Tran M.D. 78586 477.0 477.8 493.90 493.00 Office Visit 06/13/2008 2:45p [place] [facility] Felton Vinson M.D. 50870 477.0 477.8 493.90 493.00 Office Visit 05/04/2008 3:30p [place] [facility] Kelby Tran M.D. 65743 477.0 477.8 493.90 493.00 Office Visit 03/30/2008 9:15a [place] [facility] Kelby Tran M.D. 84219 477.0 477.8 493.90 Plan of Care Future Appointment(s):11/11/2017 11:40 am - JOYCE Kraft at [id number] - [facility] Encounter for gzgxmqlsdtzeG22.30 Mild persistent asthma, scvesdwmokfboK21.1 Allergic rhinitis due to teobjgD44.2 Other seasonal allergic rhinitisNew Medication:Xopenex HFA 45 mcg/ActFollow up: 6 months with pre PFTRecommendations:Continue all medications as prescribed.Refrain from wearing perfumes/scented colognes while visitingour office. DuoNeb x1 IBBP Continue the Alvesco 2 puffs twice a day, take evening dose after dinner, take one puff so you can sleep. Continue the Ventolin 2 puffs every 4 hours as needed for cough,shortness of breath, wheezing,chest congestion. Use the Ventolin 15 minutes before any activity or exertion. Use the Ventolin before activity, no need to breathe hard.
[2017-08-05 10:41] LABS: EGFR Non-African American 33.3 (>60)
[2017-08-05 10:47] LABS: ABS Basophils 0 10^3/ul (0-0.2); ABS Eosinophils 0 10^3/ul (0-0.6); ABS Lymphocytes 1.6 10^3/ul (1.0-4.8); ABS Monocytes 0.5 10^3/ul (0-0.8); ABS Neutrophils 5.8 10^3/ul (1.5-7.7); ABS Nucleated RBC 0 10^3/ul; Eosinophil % 0.1 % (0-6); Hematocrit 39 % (35-47); Hemoglobin 12.9 g/dl (12.0-16.0); Lymphocyte % 19.6 % (25-47); Mean Corpuscular HGB Conc 33 g/dl (31-36); Mean Corpuscular Hemoglobin 32 pg (27-31); Mean Corpuscular Volume 97 fL (80-97); Mean Platelet Volume 10 um3 (7.4-10.4); Nucleated Red Blood Cells % 0.2; Platelet Count 217 10^3/ul (150-450); Red Blood Count 4.03 10^6/ul (4.0-5.4); Red Cell Distribution Width 16 % (10.5-15); White Blood Count 7.9 10^3/ul (3.5-10.8)
[2017-08-05] MEDS ORDERED: Furosemide IV* 10 MG/ML 10 ML VIAL (100 MG) IV ONE (10:52)
[2017-08-05] MEDS ORDERED: Azithromycin IV(*) 500 MG in NS 0.9% 250 ML* 250 ML IVPB ONE (10:53)
[2017-08-05] MEDS ORDERED: Azithromycin IV* 500 MG ADVAN VIAL/BAG IVPB ONE (11:28)
[2017-08-05] MEDS ORDERED: Ondansetron INJ* 2 MG/ML VIAL IV PRN (12:03)
[2017-08-05] MEDS ORDERED: Acetaminophen TAB* 325 MG PO PRN (12:03)
[2017-08-05 12:54] LABS: Urine Appearance Cloudy; Urine Blood Negative (Negative); Urine Color Amber; Urine Ketones Negative (Negative); Urine Protein 3+(>=500 mg/dL) (Negative); Urine Specific Gravity 1.022 (1.010-1.030); Urine Urobilinogen Negative (Negative)
--- NOTE | 2017-08-05 14:43 | ECHO ---
Patient: MADELINE HAMPTON [facility] Rec#: [id number] : 1935 Date: 08/05/2017 Age: 81y Height: 160.02 cm / 63.0 in Weight: 56.7 kg / 125.0 lbs Sex: F BSA: 1.58 Room#: ED 18 Admit Date#: 08/05/2017 Type: Inpatient Referring: Edilson Lynch MD Reading: Tess Abbott MD Robotics Technologist: Carly Mukherjee,CHYNACS,RDMS CC: Vane Butler MD Transthoracic Echocardiogram Indication: Respiratory Failure BP: 141/108 HR: 65 Findings History: AFIB, severe AOV stenosis, MV regurgitation, breast cancer Technical Comments: The study quality is good. Left Ventricle: The left ventricular chamber size is normal. Mild concentric left ventricular hypertrophy is observed. There are multiple regional wall motion abnormalities. There is moderate to severely decreased left ventricular systolic function. The estimated ejection fraction is 25-30%. globally and inferior/posterior wall hypokinesis The assessment of diastolic function is non-diagnostic. Left Atrium: The left atrium is severely dilated. Right Ventricle: The right ventricle wall thickness is mildly increased. The right ventricular cavity size is normal. The right ventricular global systolic function is mildly reduced. Right Atrium: The right atrium is mildly dilated. Aortic Valve: The aortic valve leaflets are severely thickened with reduced systolic excursion. There is mild aortic regurgitation. There is critical aortic stenosis. The mean gradient of the aortic valve is 44 mmHg. The aortic valve area, by peak velocities, is calculated at 0.4 cm2. The highest aortic valve velocity was obtained with the standard probe from the A5C view. Mitral Valve: There is mitral annular calcification. The mitral valve leaflets are mildly thickened. There is moderate mitral regurgitation. There is mild mitral stenosis. Tricuspid Valve: The tricuspid valve leaflets are normal. There is mild tricuspid regurgitation. There is evidence of mild to moderate pulmonary hypertension. Pulmonic Valve: The pulmonic valve appears normal. There is mild to moderate pulmonic regurgitation. Pericardium: There is no significant pericardial effusion. A left pleural effusion is present. Aorta: The aortic root appears normal. The aortic arch is not well visualized. Pulmonary Artery: The main pulmonary artery appears normal. Venous: The inferior vena cava appears normal in size. There is no change in the dimension of the inferior vena cava with respiration consistent with markedly increased right atrial pressure. Summary: There are changes noted when compared to the previous study done on 01/08/2015, LV EF is less now from 45% then. is the same. MT, TR and PI are more inseverity now. Conclusions Mild concentric left ventricular hypertrophy is observed. There is moderate to severely decreased left ventricular systolic function. The estimated ejection fraction is 25-30%. globally and inferior/posterior wall hypokinesis The left atrium is severely dilated. The right ventricular global systolic function is mildly reduced. The right atrium is mildly dilated. There is mild aortic regurgitation. There is critical aortic stenosis. There is moderate mitral regurgitation. There is mild mitral stenosis. There is mild tricuspid regurgitation. There is evidence of mild to moderate pulmonary hypertension. There is mild to moderate pulmonic regurgitation. There are changes noted when compared to the previous study done on 01/08/2015, LV EF is less now from 45% then. is the same. MT, TR and PI are more inseverity now. Measurements Name Value Normal Range RVIDd (AP) 2D 3 cm (0.9 - 2.6) RAd ISD 4CH 5.3 cm (3.4 - 4.9) RA (A4C)W 4 cm (2.9 - 4.6) IVSd (2D) 1.2 cm (0.6 - 1) LVPWd (2D) 1.2 cm (0.6 - 1) LVIDd (2D) 4.5 cm (3.6 - 5.4) LVIDs (2D) 3.9 cm - LV FS (2D) 14 % (25 - 45) Aortic Annulus 1.7 cm (1.4 - 2.6) Ao root diameter (2D) 2.8 cm (2.1 - 3.5) Ascending Ao 2.3 cm (2.1 - 3.4) LA dimension (AP) 2D 4 cm (2.3 - 3.8) LAd ISD 4CH 5.9 cm (2.9 - 5.3) LA ISD 4CH W 4.6 cm (2.5 - 4.5) Name Value Normal Range LA ESV SP 4CH (A/L) 75.12 ml - LA ESV SP 2CH (A/L) 174.51 ml - LA ESV BP (A/L) 125.43 ml - LA ESV BP (A/L) index 79 ml/m2 - LA ESV SP 4CH (MOD) 69.37 ml - LA ESV SP 2CH (MOD) 161.72 ml - LV EDV SP 4CH (MOD) 96.92 ml - LV ESV SP 4CH (MOD) 49.2 ml - EF SP 4CH (MOD) 49.24 % - LV EDV SP 2CH (MOD) 122.56 ml - LV ESV SP 2CH (MOD) 77.44 ml - EF SP 2CH (MOD) 36.82 % - LV EDV BP 117.56 ml - LV ESV BP 66.18 ml - BP EF (MOD) 44 % - Name Value Normal Range MV E-wave Vmax 1.3 m/sec - MV deceleration time 171 msec - LV lateral e' Vmax 0.07 m/sec - LV E:e' lateral ratio 20 ratio - Name Value Normal Range AV Vmax 4.4 m/sec - AV VTI 79 cm - AV peak gradient 77 mmHg - AV mean gradient 44 mmHg - LVOT diameter 2 cm - LVOT Vmax 0.5 m/sec - LVOT VTI 7.4 cm - LVOT peak gradient 1 mmHg - LVOT mean gradient 0.5 mmHg - DOI (VTI) 0.1 ratio - ANITA (continuity Vmax) 0.4 cm2 - ANITA (continuity VTI) 0.3 cm2 - Name Value Normal Range MV Vmax 1.4 m/sec - MV VTI 22.5 cm - MV peak gradient 8 mmHg - MV mean gradient 1.8 mmHg - MV PHT 53 msec - MVA (PHT) 4.1 cm2 - MVA (continuity VTI) 1 cm2 - Name Value Normal Range TR Vmax 2.7 m/sec - TR peak gradient 29 mmHg - RAP 15 mmHg - RVSP 44 mmHg - IVC diameter 1.9 cm - Name Value Normal Range PV Vmax 0.8 m/sec - PV peak gradient 2.6 mmHg -
[2017-08-05 14:44] LABS: INR 4.04 (0.77-1.02)
[2017-08-05] MEDS ORDERED: Warfarin TAB(*) 4 MG PO SCH (17:00)
--- NOTE | 2017-08-05 17:30 | ED ---
Codi Akins Nilda, scribed for Rodney Lewis MD on 08/05/17 at 1023 . Shortness of Breath - HPI Summary HPI Summary: This patient is an 81 year old F presenting to [facility] accompanied by daughter with a chief complaint of SOB since 0800 this morning. The patient rates the pain 0/10 in severity. Symptoms aggravated by nothing and alleviated by Guaifenesin and albuterol inhaler. Daughter reports cough (2 days), fever ( today at 0800), and edema. Daughter states patient has been sleeping reclined and edema has worsened. Edema first appeared after having kidney infection and "getting pumped with fluids." No known PMHx CHF, per daughter. - History of Current Complaint Chief Complaint: EDShortnessOfBreath Hx Obtained From: Patient, Family/Auto Hiker - daughter Onset/Duration: Sudden Onset, Lasting Hours, Still Present Timing: Constant Current Severity: Moderate Dyspnea At: Rest Aggrevating Factors: Nothing Alleviating Factors: Bronchodilators, OTC Meds Associated Signs & Symptoms: Cough (Nonproductive), Fever - Allergy/Home Medications Allergies/Adverse Reactions: Allergies Allergy/AdvReac Type Severity Reaction Status Date / Time MS Diphenhydramine Allergy Hallucinati Verified 08/05/17 10:22 [From Benadryl] ons MS Codeine [Codeine] AdvReac Hallucinati Verified 08/05/17 10:22 ons Narcotic AdvReac Hallucinati Uncoded 08/05/17 10:22 ons Home Medications: Home Medications Ciclesonide 160 MG MDI (NF) [Alvesco 160 MDI (NF)] 2 puff INH BID 08/05/17 [ History Confirmed 08/05/17] Diltiazem CD CAP* [Cardizem CD CAP*] 180 mg PO DAILY 08/05/17 [History Confirmed 08/05/17] Levalbuterol HFA INHALER* [Xopenex Hfa Inhaler*] 2 puff INH Q6H PRN 08/05/17 [ History Confirmed 08/05/17] PMH/Surg Hx/FS Hx/Imm Hx Endocrine/Hematology History: Denies: Hx Diabetes Cardiovascular History: Reports: Hx Hypertension, Other Cardiovascular Problems/ Disorders - PT'S DAUGHTER STATES "VALVE PROBLEM." Denies: Hx Pacemaker/ICD Respiratory History: Reports: Hx Asthma, Other Respiratory Problems/Disorders - negative CHF Sensory History: Reports: Hx Hearing Aid - will remove Neurological History: Reports: Hx Dementia Psychiatric History: Denies: Hx Panic Disorder - Cancer History Cancer Type, Location and Year: B/L breast - Surgical History Surgery Procedure, Year, and Place: breasts, bladder 2009, varicose veins, urethral sling, left hip ORIF 08/2012, PORT IN CHEST. Infectious Disease History: No Infectious Disease History: Denies: Traveled Outside the [place] in Last 30 Days - Family History Known Family History: Negative: Diabetes - Social History Alcohol Use: None Hx Substance Use: No Substance Use Type: Reports: None Hx Tobacco Use: No Smoking Status (MU): Never Smoked Tobacco Review of Systems Positive: Fever Positive: Shortness Of Breath, Cough Positive: Edema All Other Systems Reviewed And Are Negative: Yes Physical Exam - Summary Physical Exam Summary: VITAL SIGNS: Reviewed. GENERAL: Patient is an elderly fragile thin female lying comfortable in the stretcher. Patient is in acute respiratory distress. HEAD AND FACE: No signs of trauma. No ecchymosis, hematomas or skull depressions. No sinus tenderness. EYES: PERRLA, EOMI x 2, No injected conjunctiva, no nystagmus. EARS: Hearing grossly intact. Ear canals and tympanic membranes are within normal limits. MOUTH: Oropharynx within normal limits. NECK: Supple, trachea is midline, no adenopathy, no JVD, no carotid bruit, no c- spine tenderness, neck with full ROM. CHEST: Symmetric, no tenderness at palpation LUNGS: Clear to auscultation bilaterally. No wheezing or crackles. CVS: Regular rate and rhythm, S1 and S2 present, no murmurs or gallops appreciated. ABDOMEN: Soft, non-tender. No signs of distention. No rebound no guarding, and no masses palpated. Bowel sounds are normal. EXTREMITIES: Bilateral lower extremity edema. NEURO: Alert but not oriented. No acute neurological deficits. Speech is normal and follows commands. SKIN: Dry and warm Triage Information Reviewed: Yes Vital Signs On Initial Exam: Initial Vitals Temp Pulse Resp BP Pulse Ox 97.6 F 50 30 167/107 80 08/05/17 09:58 08/05/17 09:58 08/05/17 09:58 08/05/17 09:58 08/05/17 09:58 Vital Signs Reviewed: Yes Diagnostics - Vital Signs Vital Signs Temp Pulse Resp BP Pulse Ox 08/05/17 09:58 97.6 F 50 30 167/107 80 - Laboratory Lab Results: Lab Results 08/05/17 08/05/17 08/05/17 Range/Units 10:17 10:17 10:17 WBC (3.5-10.8) 10^3/ul RBC (4.0-5.4) 10^6/ul Hgb (12.0-16.0) g/dl Hct (35-47) % MCV (80-97) fL MCH (27-31) pg MCHC (31-36) g/dl RDW (10.5-15) % Plt Count (150-450) 10^3/ul MPV (7.4-10.4) um3 Neut % (Auto) (38-83) % Lymph % (Auto) (25-47) % [place] % (Auto) (1-9) % Eos % (Auto) (0-6) % Baso % (Auto) (0-2) % Absolute Neuts (auto) (1.5-7.7) 10^3/ul Absolute Lymphs (auto) (1.0-4.8) 10^3/ul Absolute Monos (auto) (0-0.8) 10^3/ul Absolute Eos (auto) (0-0.6) 10^3/ul Absolute Basos (auto) (0-0.2) 10^3/ul Absolute Nucleated RBC 10^3/ul Nucleated RBC % APTT 42.2 H (26.0-36.3) seconds Patient Temperature ABG pH (7.35-7.45) ABG pH (Temp Correct) ABG pCO2 (35-45) mmHg ABG pCO2 (Temp Corrct ABG pO2 (80-100) mmHg ABG pO2 (Temp Correct ABG HCO3 (19-31) mmol/L ABG O2 Saturation (95-98) % ABG Base Excess (-2.0-2.0) Respiration Rate Ventilator Type Vent Mode FiO2 Inspiratory Time PEEP Pressure Support Pressure Control EPAP IPAP BiPAP Sodium 138 (133-145) mmol/L Potassium 4.2 (3.5-5.0) mmol/L Chloride 101 (101-111) mmol/L Carbon Dioxide 28 (22-32) mmol/L Anion Gap 9 (2-11) mmol/L BUN 38 H (6-24) mg/dL Creatinine 1.50 H (0.51-0.95) mg/dL Est GFR ( Amer) 42.9 (>60) Est GFR (Non-Af Amer) 33.3 (>60) BUN/Creatinine Ratio 25.3 H (8-20) Glucose 142 H (70-100) mg/dL Lactic Acid (0.5-2.0) mmol/L Calcium 9.7 (8.6-10.3) mg/dL Total Bilirubin 0.80 (0.2-1.0) mg/dL AST 57 H (13-39) U/L ALT 51 (7-52) U/L Alkaline Phosphatase 131 H (34-104) U/L Total Creatine Kinase 61 (10-223) U/L CK-MB (CK-2) 5.9 (0.6-6.3) ng/mL Troponin I 0.16 H* (<0.04) ng/mL C-Reactive Protein 17.84 H (< 5.00) mg/L B-Natriuretic Peptide 3748 H ( - 100) pg/mL Total Protein 8.3 (6.4-8.9) g/dL Albumin 3.8 (3.2-5.2) g/dL Globulin 4.5 H (2-4) g/dL Albumin/Globulin Ratio 0.8 L (1-3) Influenza A (Rapid) (Negative) Influenza B (Rapid) (Negative) 08/05/17 08/05/17 08/05/17 Range/Units 10:17 10:17 10:31 WBC 7.9 (3.5-10.8) 10^3/ul RBC 4.03 (4.0-5.4) 10^6/ul Hgb 12.9 (12.0-16.0) g/dl Hct 39 (35-47) % MCV 97 (80-97) fL MCH 32 H (27-31) pg MCHC 33 (31-36) g/dl RDW 16 H (10.5-15) % Plt Count 217 (150-450) 10^3/ul MPV 10 (7.4-10.4) um3 Neut % (Auto) 73.6 (38-83) % Lymph % (Auto) 19.6 L (25-47) % [place] % (Auto) 6.2 (1-9) % Eos % (Auto) 0.1 (0-6) % Baso % (Auto) 0.5 (0-2) % Absolute Neuts (auto) 5.8 (1.5-7.7) 10^3/ul Absolute Lymphs (auto) 1.6 (1.0-4.8) 10^3/ul Absolute Monos (auto) 0.5 (0-0.8) 10^3/ul Absolute Eos (auto) 0 (0-0.6) 10^3/ul Absolute Basos (auto) 0 (0-0.2) 10^3/ul Absolute Nucleated RBC 0 10^3/ul Nucleated RBC % 0.2 APTT (26.0-36.3) seconds Patient Temperature ABG pH (7.35-7.45) ABG pH (Temp Correct) ABG pCO2 (35-45) mmHg ABG pCO2 (Temp Corrct ABG pO2 (80-100) mmHg ABG pO2 (Temp Correct ABG HCO3 (19-31) mmol/L ABG O2 Saturation (95-98) % ABG Base Excess (-2.0-2.0) Respiration Rate Ventilator Type Vent Mode FiO2 Inspiratory Time PEEP Pressure Support Pressure Control EPAP IPAP BiPAP Sodium (133-145) mmol/L Potassium (3.5-5.0) mmol/L Chloride (101-111) mmol/L Carbon Dioxide (22-32) mmol/L Anion Gap (2-11) mmol/L BUN (6-24) mg/dL Creatinine (0.51-0.95) mg/dL Est GFR ( Amer) (>60) Est GFR (Non-Af Amer) (>60) BUN/Creatinine Ratio (8-20) Glucose (70-100) mg/dL Lactic Acid 2.3 H* (0.5-2.0) mmol/L Calcium (8.6-10.3) mg/dL Total Bilirubin (0.2-1.0) mg/dL AST (13-39) U/L ALT (7-52) U/L Alkaline Phosphatase (34-104) U/L Total Creatine Kinase (10-223) U/L CK-MB (CK-2) (0.6-6.3) ng/mL Troponin I (<0.04) ng/mL C-Reactive Protein (< 5.00) mg/L B-Natriuretic Peptide ( - 100) pg/mL Total Protein (6.4-8.9) g/dL Albumin (3.2-5.2) g/dL Globulin (2-4) g/dL Albumin/Globulin Ratio (1-3) Influenza A (Rapid) Negative (Negative) Influenza B (Rapid) Negative (Negative) 08/05/17 Range/Units 10:35 WBC (3.5-10.8) 10^3/ul RBC (4.0-5.4) 10^6/ul Hgb (12.0-16.0) g/dl Hct (35-47) % MCV (80-97) fL MCH (27-31) pg MCHC (31-36) g/dl RDW (10.5-15) % Plt Count (150-450) 10^3/ul MPV (7.4-10.4) um3 Neut % (Auto) (38-83) % Lymph % (Auto) (25-47) % [place] % (Auto) (1-9) % Eos % (Auto) (0-6) % Baso % (Auto) (0-2) % Absolute Neuts (auto) (1.5-7.7) 10^3/ul Absolute Lymphs (auto) (1.0-4.8) 10^3/ul Absolute Monos (auto) (0-0.8) 10^3/ul Absolute Eos (auto) (0-0.6) 10^3/ul Absolute Basos (auto) (0-0.2) 10^3/ul Absolute Nucleated RBC 10^3/ul Nucleated RBC % APTT (26.0-36.3) seconds Patient Temperature Not Reportable ABG pH 7.34 L (7.35-7.45) ABG pH (Temp Correct) Not Reportable ABG pCO2 50 H (35-45) mmHg ABG pCO2 (Temp Corrct Not Reportable ABG pO2 69 L (80-100) mmHg ABG pO2 (Temp Correct Not Reportable ABG HCO3 25.3 (19-31) mmol/L ABG O2 Saturation 96.0 (95-98) % ABG Base Excess 0.6 (-2.0-2.0) Respiration Rate Not Reportable Ventilator Type Not Reportable Vent Mode Not Reportable FiO2 3 Inspiratory Time Not Reportable PEEP Not Reportable Pressure Support Not Reportable Pressure Control Not Reportable EPAP Not Reportable IPAP Not Reportable BiPAP Not Reportable Sodium (133-145) mmol/L Potassium (3.5-5.0) mmol/L Chloride (101-111) mmol/L Carbon Dioxide (22-32) mmol/L Anion Gap (2-11) mmol/L BUN (6-24) mg/dL Creatinine (0.51-0.95) mg/dL Est GFR ( Amer) (>60) Est GFR (Non-Af Amer) (>60) BUN/Creatinine Ratio (8-20) Glucose (70-100) mg/dL Lactic Acid (0.5-2.0) mmol/L Calcium (8.6-10.3) mg/dL Total Bilirubin (0.2-1.0) mg/dL AST (13-39) U/L ALT (7-52) U/L Alkaline Phosphatase (34-104) U/L Total Creatine Kinase (10-223) U/L CK-MB (CK-2) (0.6-6.3) ng/mL Troponin I (<0.04) ng/mL C-Reactive Protein (< 5.00) mg/L B-Natriuretic Peptide ( - 100) pg/mL Total Protein (6.4-8.9) g/dL Albumin (3.2-5.2) g/dL Globulin (2-4) g/dL Albumin/Globulin Ratio (1-3) Influenza A (Rapid) (Negative) Influenza B (Rapid) (Negative) Result Diagrams: 08/05/17 10:17 08/05/17 10:17 Lab Statement: Any lab studies that have been ordered have been reviewed, and results considered in the medical decision making process. - Radiology CXR Radiology Interpretation Completed By: Radiologist - CXR, per radiologist, reveals small right basilar infiltrate, new. Dr. Lewis has reviewed this radiology report. Re-Evaluation - Re-Evaluation First Eval Re-Evaluation Time: 10:56 Comment: Reviewed lab and imaging results with pt and daughter. Pt and daughter agreeable to admission. Course/Dx - Course Assessment/Plan: This patient is an 81 year old F presenting to [facility] accompanied by daughter with a chief complaint of SOB since 0800 this morning. The patient rates the pain 0/10 in severity. Symptoms aggravated by nothing and alleviated by Guaifenesin and albuterol inhaler. Daughter reports cough (2 days) , fever (today at 0800), and edema. Daughter states patient has been sleeping reclined and edema has worsened. Edema first appeared after having kidney infection and getting pumped with fluids. No known PMHx CHF, per daughter. CXR, per radiologist, reveals small right basilar infiltrate, new. Dr. Lewis has reviewed this radiology report. Lab tests are without significant abnormalities except for acute renal insufficiency. Trop 0.16. BNP 3,748. Influenza A and B are negative. CXR show bilateral PNA. Initially the O2Sat was in the 70s. After O2, it improved to 90s. Pt was given Ativan and was very stressed out, she was given Lasix for CHF exacerbation, she was given Rocephin and Azithromycin for the PNA. I also placed the pt in a biPAP which shes tolerating well and the saturation is at 100%. At this point the pt is hemodynamically stable and is feeling improvements. I discussed the case with Dr. Aguirre (Hospitalist) who accepted the pt. - Diagnoses Differential Diagnosis/HQI/PQRI: Positive: Asthma, Bronchitis, CHF, COPD Exacerbation, NH, Pneumonia, Pulmonary Edema Provider Diagnoses: CHF exacerbation, Renal failure, PNA (pneumonia), Elevated troponin - Physician Notifications Discussed Care of Patient With: Noreen Aguirre - Hospitalist Time Discussed With Above Provider: 11:12 Instructed by Provider To: Admit As Inpatient - Critical Care Time Critical Care Time: 75-104 min Discharge - Discharge Plan Condition: Stable Disposition: ADMITTED TO [facility] documentation as recorded by the Codi stewart Nilda accurately reflects the service I personally performed and the decisions made by me, Rodney Lewis MD.
[2017-08-05] MEDS: LORazepam INJ* 2 MG/ML 1 ML VIAL IV PUSH PRN (19:30)
--- NOTE | 2017-08-05 21:43 | HP ---
CC: Dr. Butler * HISTORY AND PHYSICAL: DATE OF ADMISSION: 08/05/17 TIME OF EVALUATION: 01:00 p.m. PRIMARY CARE PROVIDER: Dr. Vane Butler. CHIEF COMPLAINT: Respiratory distress - the patient started on urgent BiPAP in the ED and was referred for admission. HISTORY OF PRESENT ILLNESS: Ms. Light is a medically-complex 81-year-old female who comes to the emergency room with ongoing shortness of breath since earlier this morning and for the past few days. The patient has been taking guaifenesin and an albuterol inhaler. The patient has been coughing for the past few days and had a fever starting this morning as well as increasing lower extremity edema. The patient has been sleeping in a recliner and her (dependent ) edema has worsened. The patient was recently hospitalized in May with pyelonephritis requiring urgent transfer to a tertiary center. The patient was treated with nephrostomy drainage and decompression. She was aggressively hydrated, as she was septic at that time. There was no history of congestive heart failure, per her daughter, before then. There was initial concern in the ED of pneumonia, as the patient had a right basilar infiltrate and so IV antibiotics were administered, but the patient is not febrile, nor does she have an elevated white blood cell count and the clinical picture is later more consistent with congestive heart failure and cardiogenic shock. The patient was started on urgent BiPAP for obvious fatigue and ABG showed a pH of 7.34, pCO2 of 50 and pO2 of 69 on 3 L nasal cannula. The patient was placed on BiPAP and repeat ABG showed a pH of 7.38, pCO2 of 48 and pO2 up to 136 on 40% O2 with IPEP 12, EPEP 6 and backup respirations of 12. The patient was not able to provide any direct history herself, all of the history coming from the patient' s daughter, Meryl. There was an additional call with daughter, Court, who is a cardiac nurse from [place]. They related that the patient has a known history of [id number] aortic stenosis and the decision was made several years earlier not to proceed with valvular surgery/intervention and they understood this is a progressive problem. The patient arrived a "full code", but both Court and Meryl have agreed that the patient should be a DNR with a do not intubate posture with a limit on aggressiveness of care that would not include vasopressors or ACLS resuscitation. The patient is currently stable on BiPAP. She is going to be weaned off with the assistance of respiratory therapy and I have spoken to them directly. The patient is being placed in the ICU for management of her acute BiPAP, but the family is interested in a palliative care/hospice consult. The patient did receive aggressive IV diuresis (60 mg Lasix) in the emergency room. Her nephrostomy tubes are in place and she is diuresing nicely. PAST MEDICAL HISTORY: 1. Atrial fibrillation. 2. Asthma. 3. Coronary artery disease. 4. Hypertension. 5. Breast cancer, status post chemotherapy. 6. Port in situ and accessed by nursing staff. 7. Arthritis. OUTPATIENT MEDICATIONS: 1. Warfarin 4 mg daily at 1700 hours. 2. Digoxin 0.125 mg by mouth daily. 3. Ventolin 1 puff daily as needed. 4. Zoloft 50 mg by mouth daily. 5. Lisinopril 10 mg by mouth daily. 6. Diltiazem 180 mg by mouth daily. 7. B12 1000 mcg by mouth daily. ALLERGIES: To CODEINE (hallucinations only). FAMILY HISTORY: Unremarkable based on the current presentation, but reviewed. SOCIAL HISTORY: The patient is a nonsmoker and does not consume any alcohol. Surrogate decision maker is her daughter, Meryl, with input from her other daughter Court, who is a cardiac nurse in [place]. REVIEW OF SYSTEMS: A review of 14 systems was done at the bedside. This was accomplished by input from daughter, Meryl, but there are no pertinent positives other than what I mentioned already in the HPI and past medical history. Of note, the patient has underlying delirium and dementia and she was afflicted by her hospitalization in May and never fully recovered as per her family report. PHYSICAL EXAMINATION ON ADMISSION: GENERAL APPEARANCE: Elderly frail appearing woman, unresponsive on BiPAP, unable to communicate a medical history. VITAL SIGNS: Temperature 97.6 degrees Fahrenheit, pulse rate 90 and irregular ( AFib), respirations 26 to 30 (on BiPAP currently), oxygen saturation initially 80, up to high 90s on BiPAP. Blood pressure preserved at 160 to 170s/80s to 100s. HEENT: Oropharynx is clear. NECK: Supple. No carotid bruits. Jugular venous distention to the patient's jaw. LUNGS: The patient is at 45 degrees. Her breath sounds are rhonchorous and obscured bilaterally anteriorly. HEART: Her heart sounds include a 2/6 systolic ejection murmur. ABDOMEN: Soft and nontender. She has got nephrostomy tubes draining clear yellow urine. She has a chest port that is accessed. EXTREMITIES: Lower extremity scar edematous bilaterally. SKIN: Dry and intact. PSYCH AND NEUROLOGIC EXAMS: Unable to be performed. ADMISSION DATA: Blood gas values were reported in the HPI. Her white blood cell count is 7.9 with a generally unremarkable differential. Her INR is elevated at 4.04 (on warfarin). Her chemistry is significant for an elevated BUN to creatinine ratio of 38 and 1.5 respectively with a ratio of 25.3. She is hyperglycemic at 142. Her initial lactic acid was 2.3, down to 0.8 on rechecks. Her LFTs are unimpressive though she has elevated AST and ALT at 57 and 51 and an alk phos of 131. Her initial troponin was indeterminant at 0.16, down to 0.14 on recheck. Her CRP was elevated at 17.84 (elevated). Her BNP was greatly elevated from 37 to 48. Again, she received diuresis in the emergency room with IV Lasix. Her urinalysis is significant for 3+ protein and 3+ rbc's, but absent bacteria, present hyaline casts and ascorbic acid. She was dosed with IV ceftriaxone and azithromycin, which would cover a UTI. Urine culture is pending. Her influenza A and B were both negative. Chest x-ray done in the emergency room at 10:09 a.m. showed a small right basilar infiltrate that was new compared to the previous study in May. Her transthoracic echocardiogram done stat in the emergency room and read at 12: 07 p.m. on the day of admission showed critical aortic stenosis with worsening of her left ventricular ejection fraction now down to 25% to 30%, previously 45 % with pulmonary insufficiency, mitral regurgitation, and tricuspid regurgitation all more severe than previously measured. IMPRESSION: Ms. Light is an 81-year-old female who is suffering from acute heart failure and cardiogenic shock with respiratory failure requiring noninvasive mechanical ventilation in the aftermath of an acute illness and critical care admission in May 2017 from pyelonephritis, status post nephrostomy tubes at that time. The patient is afflicted with multiple illnesses and is progressively decompensating. I spoke with Dr. Vane Howson, the patient's primary care doctor , who feels the same in her reported concern over the patient's trajectory over the past 6 months. The patient's daughters, Meryl and Court, are both in agreement that there should not be aggressive measures beyond the BiPAP and diuresis that we are undertaking at this time. The echocardiogram confirms the report of critical aortic stenosis, and likely the patient's fluid status has led to a cardiac decompensation with poor forward flow, lactic acidosis, and respiratory failure. The patient will be monitored in the ICU for acute BiPAP. A repeat gas showed only marginal improvements, though there was not progression. The patient will receive further diuresis. If she recovers back to her baseline, she will be maintained at a more acceptable fluid status and transition to the medical floor if the situation worsens and the patient cannot be liberated from her noninvasive ventilation. The patient's family is agreeable to a palliative care /hospice evaluation and comfort care measures. With respect to her INR, we are going to hold her Coumadin for now. The patient is not going to be able to take oral medications currently anyway and we will redose with a lower dose of warfarin tomorrow and this will be managed by pharmacy. Her other medications will be held pending her liberation from the BiPAP machine. The patient is currently n.p.o. secondary to her respiratory status. No evidence of active pneumonia though there are white blood cells in her UA, which might be related to her nephrostomy tube. If there is a urinary tract infection, we will follow the urine culture and reapply antibiotics, but I think the main issue here is her fluid status and heart failure. MOLST was signed - the patient is DNR/DNI with limits of care described above. TIME SPENT: Total time taken to admit Ms. Light was 75 minutes, greater than half that time was spent at the bedside going over the admission history and physical examination and having a discussion regarding the patient's code status and our care plan with the patient's surrogate decision maker/family. [id number]/CPS #: [id number] MTDD
[2017-08-06] MEDS: Mometasone 220 MCG MDI INH SCH ×2 (00:06→20:56)
[2017-08-06] MEDS: Morphine INJ* 2 MG/ML 1 ML CARPUJECT IV PRN ×2 (02:42→22:31)
[2017-08-06 05:46] LABS: ABS Basophils 0 10^3/ul (0-0.2); ABS Eosinophils 0 10^3/ul (0-0.6); ABS Lymphocytes 1.3 10^3/ul (1.0-4.8); ABS Monocytes 0.4 10^3/ul (0-0.8); ABS Neutrophils 5.9 10^3/ul (1.5-7.7); ABS Nucleated RBC 0 10^3/ul; Eosinophil % 0 % (0-6); Hematocrit 30 % (35-47); Hemoglobin 10.1 g/dl (12.0-16.0); Lymphocyte % 17.2 % (25-47); Mean Corpuscular HGB Conc 34 g/dl (31-36); Mean Corpuscular Hemoglobin 32 pg (27-31); Mean Corpuscular Volume 96 fL (80-97); Mean Platelet Volume 9 um3 (7.4-10.4); Nucleated Red Blood Cells % 0; Platelet Count 129 10^3/ul (150-450); Red Blood Count 3.16 10^6/ul (4.0-5.4); Red Cell Distribution Width 15 % (10.5-15); White Blood Count 7.6 10^3/ul (3.5-10.8)
[2017-08-06 06:01] LABS: EGFR Non-African American 31.2 (>60)
[2017-08-06] MEDS: LORazepam INJ* 2 MG/ML 1 ML VIAL IV PUSH PRN ×2 (06:35→17:07)
[2017-08-06 08:58] LABS: INR 4.71 (0.77-1.02)
[2017-08-06] MEDS ORDERED: Diltiazem CD CAP* 180 MG PO SCH (09:00)
[2017-08-06] MEDS ORDERED: Furosemide IV* 10 MG/ML VIAL (40 MG) IV SLOW PU ONE (10:26)
[2017-08-06] MEDS: Digoxin TAB* 0.125 MG PO SCH (11:19)
[2017-08-06] MEDS: Lisinopril TAB* 10 MG PO SCH (11:19)
--- NOTE | 2017-08-06 12:52 | PN ---
Progress Note - Progress Note Date of Service: 08/06/17 Note: CRITICAL CARE MEDICINE Date: 08/06/17 Time: 1110 SUBJECTIVE: Patient seen and examined. daughter at bedside PHYSICAL EXAM: frail appearing Vital Signs: Reviewed. rr teens Neurologic: comfortable on bipap at present HEENT: pupils equal. Sclera anicteric. Cardiovascular: distant, S1 S2; 4/6 nicole Respiratory: no rales, no wheeze Abdomen: Soft, nt. No r/g/r. Extremities: cool. 3+ edema Access: piv; R port LABS: Reviewed. IMAGING: Reviewed. MEDICATIONS: Reviewed. ASSESSMENT: 81 F Acute hypoxic resp failure Acute pulmonary edema Acute on chronic systolic heart failure Critical Aortic stenosis Moderate mitral regurg ARTHUR; with h/o nephrostomy placement Afib PLAN: Neurologic: support and may need morphine or anxiolytics Cardiovascular: Perfusing but without much reserve. gross interstitial vol overload and how much is dependent is difficult to discern and therefore promote diueresis. Critical with worsening systolic function and mod mr is leading to her failing state and may not be surmountable. Respiratory: bipap for now as she is comfortable and give her time to recuperate and try again off. Gastrointestinal: po as able. Renal/Metabolic: acute on chronic ailments. f/u with diuretics Infectious Disease: no infective burden Hematology: stable, allow INR drift. Endocrine: no need for steroids. Musculoskeletal: oob as able Psych/Social: d/w pts daughter who grasps a good understanding and hopeful for a balance of care and comfort. Supportive and preventative care as ordered. SUP: po VTE prophylaxis: f/u inr Toney catheter given critical illness, monitoring needs for accurate assessment of ARTHUR and KDIGO criteria for critically ill patients and to avoid potential harms of urinary retention, skin breakdown/ulcers. Disposition: ICU Code Status: Full Critical Care Time: 25min Danika Banda DO
[2017-08-07] MEDS: LORazepam INJ* 2 MG/ML 1 ML VIAL IV PUSH PRN (02:47)
[2017-08-07 06:20] LABS: Hematocrit 31 % (35-47); Hemoglobin 10.2 g/dl (12.0-16.0); Mean Platelet Volume 10 um3 (7.4-10.4); Platelet Count 136 10^3/ul (150-450)
[2017-08-07 06:22] LABS: INR 4.6 (0.77-1.02)
[2017-08-07 06:41] LABS: EGFR Non-African American 31.6 (>60)
[2017-08-07] MEDS ORDERED: Magnesium Sulfate 2 GM IV* 2 GM/50 ML BAG IVPB ONE (07:44)
[2017-08-07] MEDS: Lisinopril TAB* 10 MG PO SCH (08:34)
[2017-08-07] MEDS: Digoxin TAB* 0.125 MG PO SCH (08:34)
[2017-08-07] MEDS: Potassium Chlor TAB* 20 MEQ TAB.ER PO SCH ×3 (08:34→21:43)
[2017-08-07] MEDS ORDERED: acetaZOLAMIDE VIAL* 500 MG VIAL IV PUSH SCH (11:00)
[2017-08-07] MEDS ORDERED: acetaZOLAMIDE VIAL* 500 MG in NS 0.9% 50 ML* 50 ML IVPB SCH (11:00)
[2017-08-07] MEDS: Furosemide IV* 10 MG/ML VIAL (40 MG) IV SLOW PU SCH ×2 (11:11→21:43)
[2017-08-07] MEDS: D5W IVPB SCH (11:39)
[2017-08-07] MEDS: CHLOROTHIAZIDE IVPB SCH (11:39)
--- NOTE | 2017-08-07 12:20 | PN ---
Progress Note - Progress Note Date of Service: 08/07/17 Note: CRITICAL CARE MEDICINE Date: 08/07/17 Time: 1015 SUBJECTIVE: Patient seen and examined. PHYSICAL EXAM: frail appearing Vital Signs: Reviewed. rr teens on 10L Neurologic: comfortable. attempts communication but dementia HEENT: pupils equal. Sclera anicteric. Cardiovascular: distant, S1 S2; 4/6 nicole Respiratory: bl rales, and mild wheeze Abdomen: Soft, nt. No r/g/r. Extremities: coolish. 3+ edema Access: piv; R port LABS: Reviewed. IMAGING: Reviewed. MEDICATIONS: Reviewed. ASSESSMENT: 81 F Acute hypoxic resp failure Acute pulmonary edema Acute on chronic systolic heart failure Critical Aortic stenosis Moderate mitral regurg ARTHUR; with h/o nephrostomy placement Afib PLAN: Neurologic: morphine or anxiolytics prn Cardiovascular: Perfusing and continue to attempt diueresis. Critical still the main ailment but tolerable at moment. see if she can continue to equilibrate with support and time. Respiratory: declining bipap. has rales and is managing. question becomes if she is going to head towards rescue needs - not at the moment but in the future for sure. Declining bipap and ok not to use now but need to solidify her wishes. tried to explain to her the plan to keep her is a dry as able and avoid rescues. Gastrointestinal: po advanced Renal/Metabolic: acute on chronic ailments. diuretics cocktail Infectious Disease: no infective burden Hematology: stable, allowing INR drift. Endocrine: no need for steroids. Musculoskeletal: oob as able Psych/Social: d/w pts daughter yesterday and will look to update. palliative care f/u. Supportive and preventative care as ordered. SUP: po VTE prophylaxis: f/u inr Disposition: should be ok for floor later as no planned rescues Code Status: DNR Critical Care Time: 25min Danika Banda DO
[2017-08-07] MEDS: acetaZOLAMIDE VIAL* 500 MG VIAL IV PUSH SCH ×2 (13:19→21:43)
[2017-08-07] MEDS: Morphine INJ* 2 MG/ML 1 ML CARPUJECT IV PRN (14:04)
[2017-08-07] MEDS: Mometasone 220 MCG MDI INH SCH (20:33)
[2017-08-08] MEDS: LORazepam INJ* 2 MG/ML 1 ML VIAL IV PUSH PRN (04:15)
[2017-08-08 05:45] LABS: Hematocrit 35 % (35-47); Hemoglobin 11.2 g/dl (12.0-16.0); Mean Platelet Volume 10 um3 (7.4-10.4); Platelet Count 164 10^3/ul (150-450)
[2017-08-08 05:59] LABS: INR 4.81 (0.77-1.02)
[2017-08-08] MEDS: D5W IVPB SCH (12:11)
[2017-08-08] MEDS: Lisinopril TAB* 10 MG PO SCH (12:11)
[2017-08-08] MEDS: CHLOROTHIAZIDE IVPB SCH (12:11)
[2017-08-08] MEDS: Digoxin TAB* 0.125 MG PO SCH (12:11)
[2017-08-08] MEDS: Potassium Chlor TAB* 20 MEQ TAB.ER PO SCH ×2 (12:11→16:50)
[2017-08-08] MEDS: Furosemide IV* 10 MG/ML VIAL (40 MG) IV SLOW PU SCH (12:11)
[2017-08-08] MEDS: acetaZOLAMIDE VIAL* 500 MG VIAL IV PUSH SCH (12:12)
[2017-08-08] MEDS ORDERED: LORazepam TAB(*) 0.5 MG SL PRN (14:03)
[2017-08-08] MEDS ORDERED: Morphine ORAL CONCENTRATE* 5 MG/0.25 ML ORAL.SYRIN SL PRN (14:04)
[2017-08-08] MEDS ORDERED: Atropine 1% (ORAL/SL)* 15 ML BTL SL PRN (14:04)
--- NOTE | 2017-08-08 14:14 | PN ---
Subjective Date of Service: 08/08/17 Interval History: No c/o. Objective Active Medications: Acetaminophen (Tylenol Tab*) 650 mg PO Q4H PRN PRN Reason: FEVER/PAIN Atropine Sulfate (Atropine 1% (Oral/Sl)*) 2 drop SL Q2H PRN PRN Reason: DISCOMFORT Digoxin (Lanoxin Tab*) 0.125 mg PO DAILY [facility] Last Admin: 08/08/17 12:11 Dose: 0.125 mg Lisinopril (Prinivil Tab*) 10 mg PO DAILY [facility] Last Admin: 08/08/17 12:11 Dose: 10 mg Lorazepam (Ativan Tab(*)) 0.5 mg PO Q4H PRN PRN Reason: ANXIETY Lorazepam (Ativan Tab(*)) 0.5 mg SL Q4H PRN PRN Reason: ANXIETY Mometasone Furoate (Asmanex 220 Mcg Mdi *) 2 puff INH 2100 [facility] Last Admin: 08/07/17 20:33 Dose: 2 puff Morphine Sulfate (Morphine Oral Concentrate*) 5 mg SL Q30M PRN PRN Reason: PAIN Ondansetron HCl (Zofran Inj*) 4 mg IV Q4H PRN PRN Reason: NAUSEA/VOMITING Vital Signs - 8 hr 08/08/17 08/08/17 08/08/17 07:49 11:23 12:11 Temperature 98.0 F 98.5 F Pulse Rate 70 25 64 Respiratory 16 16 Rate Blood Pressure 140/56 137/71 (mmHg) O2 Sat by Pulse 100 97 Oximetry Oxygen Devices in Use Now: High Flow Nasal Cannula Appearance: Alert, sitting up in bed. Neutral affect. Looks comfortable. Eyes: No Scleral Icterus Respiratory: Symmetrical Chest Expansion and Respiratory Effort, Clear to Auscultation, Clear to Percussion, - - Diminished BS BL Cardiovascular: RRR, No Edema, - - 3/6 systolic murmur RSB. Lower leg skin wrinkled. Extremities: No Clubbing, Cyanosis, - - Lower leg skin wrinkled. Neurological: NL Sensation - Poor hearing, , - - Poor hearing, does not have her hearing aid in place. Does not answer questions appropriately. Result Diagrams: 08/08/17 05:30 08/07/17 05:47 Additional Lab and Data: Lab Results 08/05/17 08/05/17 08/05/17 Range/Units 10:17 10:17 10:17 WBC (3.5-10.8) 10^3/ul RBC (4.0-5.4) 10^6/ul Hgb (12.0-16.0) g/dl Hct (35-47) % MCV (80-97) fL MCH (27-31) pg MCHC (31-36) g/dl RDW (10.5-15) % Plt Count (150-450) 10^3/ul MPV (7.4-10.4) um3 Neut % (Auto) (38-83) % Lymph % (Auto) (25-47) % [place] % (Auto) (1-9) % Eos % (Auto) (0-6) % Baso % (Auto) (0-2) % Absolute Neuts (auto) (1.5-7.7) 10^3/ul Absolute Lymphs (auto) (1.0-4.8) 10^3/ul Absolute Monos (auto) (0-0.8) 10^3/ul Absolute Eos (auto) (0-0.6) 10^3/ul Absolute Basos (auto) (0-0.2) 10^3/ul Absolute Nucleated RBC 10^3/ul Nucleated RBC % APTT 42.2 H (26.0-36.3) seconds Patient Temperature ABG pH (7.35-7.45) ABG pH (Temp Correct) ABG pCO2 (35-45) mmHg ABG pCO2 (Temp Corrct ABG pO2 (80-100) mmHg ABG pO2 (Temp Correct ABG HCO3 (19-31) mmol/L ABG O2 Saturation (95-98) % ABG Base Excess (-2.0-2.0) Respiration Rate Ventilator Type Vent Mode FiO2 Inspiratory Time PEEP Pressure Support Pressure Control EPAP IPAP BiPAP Sodium 138 (133-145) mmol/L Potassium 4.2 (3.5-5.0) mmol/L Chloride 101 (101-111) mmol/L Carbon Dioxide 28 (22-32) mmol/L Anion Gap 9 (2-11) mmol/L BUN 38 H (6-24) mg/dL Creatinine 1.50 H (0.51-0.95) mg/dL Est GFR ( Amer) 42.9 (>60) Est GFR (Non-Af Amer) 33.3 (>60) BUN/Creatinine Ratio 25.3 H (8-20) Glucose 142 H (70-100) mg/dL Lactic Acid (0.5-2.0) mmol/L Calcium 9.7 (8.6-10.3) mg/dL Total Bilirubin 0.80 (0.2-1.0) mg/dL AST 57 H (13-39) U/L ALT 51 (7-52) U/L Alkaline Phosphatase 131 H (34-104) U/L Total Creatine Kinase 61 (10-223) U/L CK-MB (CK-2) 5.9 (0.6-6.3) ng/mL Troponin I 0.16 H* (<0.04) ng/mL C-Reactive Protein 17.84 H (< 5.00) mg/L B-Natriuretic Peptide 3748 H ( - 100) pg/mL Total Protein 8.3 (6.4-8.9) g/dL Albumin 3.8 (3.2-5.2) g/dL Globulin 4.5 H (2-4) g/dL Albumin/Globulin Ratio 0.8 L (1-3) Influenza A (Rapid) (Negative) Influenza B (Rapid) (Negative) 08/05/17 08/05/17 08/05/17 Range/Units 10:17 10:17 10:31 WBC 7.9 (3.5-10.8) 10^3/ul RBC 4.03 (4.0-5.4) 10^6/ul Hgb 12.9 (12.0-16.0) g/dl Hct 39 (35-47) % MCV 97 (80-97) fL MCH 32 H (27-31) pg MCHC 33 (31-36) g/dl RDW 16 H (10.5-15) % Plt Count 217 (150-450) 10^3/ul MPV 10 (7.4-10.4) um3 Neut % (Auto) 73.6 (38-83) % Lymph % (Auto) 19.6 L (25-47) % [place] % (Auto) 6.2 (1-9) % Eos % (Auto) 0.1 (0-6) % Baso % (Auto) 0.5 (0-2) % Absolute Neuts (auto) 5.8 (1.5-7.7) 10^3/ul Absolute Lymphs (auto) 1.6 (1.0-4.8) 10^3/ul Absolute Monos (auto) 0.5 (0-0.8) 10^3/ul Absolute Eos (auto) 0 (0-0.6) 10^3/ul Absolute Basos (auto) 0 (0-0.2) 10^3/ul Absolute Nucleated RBC 0 10^3/ul Nucleated RBC % 0.2 APTT (26.0-36.3) seconds Patient Temperature ABG pH (7.35-7.45) ABG pH (Temp Correct) ABG pCO2 (35-45) mmHg ABG pCO2 (Temp Corrct ABG pO2 (80-100) mmHg ABG pO2 (Temp Correct ABG HCO3 (19-31) mmol/L ABG O2 Saturation (95-98) % ABG Base Excess (-2.0-2.0) Respiration Rate Ventilator Type Vent Mode FiO2 Inspiratory Time PEEP Pressure Support Pressure Control EPAP IPAP BiPAP Sodium (133-145) mmol/L Potassium (3.5-5.0) mmol/L Chloride (101-111) mmol/L Carbon Dioxide (22-32) mmol/L Anion Gap (2-11) mmol/L BUN (6-24) mg/dL Creatinine (0.51-0.95) mg/dL Est GFR ( Amer) (>60) Est GFR (Non-Af Amer) (>60) BUN/Creatinine Ratio (8-20) Glucose (70-100) mg/dL Lactic Acid 2.3 H* (0.5-2.0) mmol/L Calcium (8.6-10.3) mg/dL Total Bilirubin (0.2-1.0) mg/dL AST (13-39) U/L ALT (7-52) U/L Alkaline Phosphatase (34-104) U/L Total Creatine Kinase (10-223) U/L CK-MB (CK-2) (0.6-6.3) ng/mL Troponin I (<0.04) ng/mL C-Reactive Protein (< 5.00) mg/L B-Natriuretic Peptide ( - 100) pg/mL Total Protein (6.4-8.9) g/dL Albumin (3.2-5.2) g/dL Globulin (2-4) g/dL Albumin/Globulin Ratio (1-3) Influenza A (Rapid) Negative (Negative) Influenza B (Rapid) Negative (Negative) 08/05/17 Range/Units 10:35 WBC (3.5-10.8) 10^3/ul RBC (4.0-5.4) 10^6/ul Hgb (12.0-16.0) g/dl Hct (35-47) % MCV (80-97) fL MCH (27-31) pg MCHC (31-36) g/dl RDW (10.5-15) % Plt Count (150-450) 10^3/ul MPV (7.4-10.4) um3 Neut % (Auto) (38-83) % Lymph % (Auto) (25-47) % [place] % (Auto) (1-9) % Eos % (Auto) (0-6) % Baso % (Auto) (0-2) % Absolute Neuts (auto) (1.5-7.7) 10^3/ul Absolute Lymphs (auto) (1.0-4.8) 10^3/ul Absolute Monos (auto) (0-0.8) 10^3/ul Absolute Eos (auto) (0-0.6) 10^3/ul Absolute Basos (auto) (0-0.2) 10^3/ul Absolute Nucleated RBC 10^3/ul Nucleated RBC % APTT (26.0-36.3) seconds Patient Temperature Not Reportable ABG pH 7.34 L (7.35-7.45) ABG pH (Temp Correct) Not Reportable ABG pCO2 50 H (35-45) mmHg ABG pCO2 (Temp Corrct Not Reportable ABG pO2 69 L (80-100) mmHg ABG pO2 (Temp Correct Not Reportable ABG HCO3 25.3 (19-31) mmol/L ABG O2 Saturation 96.0 (95-98) % ABG Base Excess 0.6 (-2.0-2.0) Respiration Rate Not Reportable Ventilator Type Not Reportable Vent Mode Not Reportable FiO2 3 Inspiratory Time Not Reportable PEEP Not Reportable Pressure Support Not Reportable Pressure Control Not Reportable EPAP Not Reportable IPAP Not Reportable BiPAP Not Reportable Sodium (133-145) mmol/L Potassium (3.5-5.0) mmol/L Chloride (101-111) mmol/L Carbon Dioxide (22-32) mmol/L Anion Gap (2-11) mmol/L BUN (6-24) mg/dL Creatinine (0.51-0.95) mg/dL Est GFR ( Amer) (>60) Est GFR (Non-Af Amer) (>60) BUN/Creatinine Ratio (8-20) Glucose (70-100) mg/dL Lactic Acid (0.5-2.0) mmol/L Calcium (8.6-10.3) mg/dL Total Bilirubin (0.2-1.0) mg/dL AST (13-39) U/L ALT (7-52) U/L Alkaline Phosphatase (34-104) U/L Total Creatine Kinase (10-223) U/L CK-MB (CK-2) (0.6-6.3) ng/mL Troponin I (<0.04) ng/mL C-Reactive Protein (< 5.00) mg/L B-Natriuretic Peptide ( - 100) pg/mL Total Protein (6.4-8.9) g/dL Albumin (3.2-5.2) g/dL Globulin (2-4) g/dL Albumin/Globulin Ratio (1-3) Influenza A (Rapid) (Negative) Influenza B (Rapid) (Negative) Microbiology and Other Data: Microbiology 08/06/17 20:21 Gram Stain - Final Sputum Expectorated Sputum Culture - Final YEAST Normal Jolly 08/05/17 17:31 Nasal Screen MRSA (PCR)(SUDHEER) - Final Nasal Mrsa Not Detected Assess/Plan/Problems-Billing Assessment: - Patient Problems (1) Aortic stenosis Current Visit: Yes Status: Acute Code(s): I35.0 - NONRHEUMATIC AORTIC (VALVE ) STENOSIS SNOMED Code(s): 73425088 Comment: Critical , valve area 0.4 cm2 on echo 08/05/17. She had refused repari 4 yrs ago. Hospice consult requested. I discussed this with her daughter, Meryl. Change to torsemide 20 mg po daily start 08/09, stop IV furosemdie after today's AM dose. My goal would be to maintain neutral fluid balance from here on. KCL ordered to start 08/08. (2) Dementia Current Visit: Yes Status: Acute Code(s): F03.90 - UNSPECIFIED DEMENTIA WITHOUT BEHAVIORAL DISTURBANCE SNOMED Code(s): 70827730 Comment: Her eating is erratic, likely not enough to sustain her. (3) End of life care Current Visit: Yes Status: Acute Code(s): Z51.5 - ENCOUNTER FOR PALLIATIVE CARE SNOMED Code(s): 557313784 Comment: SL MS, atropin, lorazepam PRN ordered. Daughter seems to have much support at home and is capable of managing the patient at home, but might agree to care at the Hospice residence.
[2017-08-08] MEDS: Mometasone 220 MCG MDI INH SCH (21:18)
--- NOTE | 2017-08-09 08:58 | PN ---
Subjective Date of Service: 08/09/17 Interval History: Minimally responsive Unable to communicate needs Objective Active Medications: Acetaminophen (Tylenol Tab*) 650 mg PO Q4H PRN PRN Reason: FEVER/PAIN Atropine Sulfate (Atropine 1% (Oral/Sl)*) 2 drop SL Q2H PRN PRN Reason: DISCOMFORT Digoxin (Lanoxin Tab*) 0.125 mg PO DAILY [facility] Last Admin: 08/08/17 12:11 Dose: 0.125 mg Heparin Sodium (Porcine) (Heparin Flush Port (Ivad)) 5 ml FLUSH DAILY [facility] PRN Reason: Protocol Last Admin: 08/08/17 20:05 Dose: 5 ml Lisinopril (Prinivil Tab*) 10 mg PO DAILY [facility] Last Admin: 08/08/17 12:11 Dose: 10 mg Lorazepam (Ativan Tab(*)) 0.5 mg PO Q4H PRN PRN Reason: ANXIETY Lorazepam (Ativan Tab(*)) 0.5 mg SL Q4H PRN PRN Reason: ANXIETY Mometasone Furoate (Asmanex 220 Mcg Mdi *) 2 puff INH 2100 [facility] Last Admin: 08/08/17 21:18 Dose: 2 puff Morphine Sulfate (Morphine Oral Concentrate*) 5 mg SL Q30M PRN PRN Reason: PAIN Ondansetron HCl (Zofran Inj*) 4 mg IV Q4H PRN PRN Reason: NAUSEA/VOMITING Potassium Chloride (Klor Con Er Tab*) 20 meq PO DAILY [facility] Last Admin: 08/08/17 16:50 Dose: 20 meq Torsemide (Demadex*) 20 mg PO DAILY [facility] Vital Signs - 8 hr 08/09/17 08/09/17 03:21 03:25 Temperature 98.7 F Pulse Rate 84 Respiratory 22 Rate Blood Pressure 120/62 (mmHg) O2 Sat by Pulse 96 99 Oximetry Oxygen Devices in Use Now: Nasal Cannula, High Flow Nasal Cannula Appearance: Chronically ill, sleeping at 45 deg, NAD Eyes: No Scleral Icterus, PERRLA Ears/Nose/Mouth/Throat: Clear Oropharnyx Neck: NL Appearance and Movements; NL JVP, Trachea Midline Respiratory: Symmetrical Chest Expansion and Respiratory Effort Cardiovascular: RRR, - - late peaking JOVON Abdominal: NL Sounds; No Tenderness; No Distention, No Hepatosplenomegaly Extremities: - - 1+ LE edema b/l Neurological: - - asleep, difficult to arouse, comfortable Result Diagrams: 08/08/17 05:30 08/07/17 05:47 Additional Lab and Data: Lab Results 08/05/17 08/05/17 08/05/17 Range/Units 10:17 10:17 10:17 WBC (3.5-10.8) 10^3/ul RBC (4.0-5.4) 10^6/ul Hgb (12.0-16.0) g/dl Hct (35-47) % MCV (80-97) fL MCH (27-31) pg MCHC (31-36) g/dl RDW (10.5-15) % Plt Count (150-450) 10^3/ul MPV (7.4-10.4) um3 Neut % (Auto) (38-83) % Lymph % (Auto) (25-47) % Kenton % (Auto) (1-9) % Eos % (Auto) (0-6) % Baso % (Auto) (0-2) % Absolute Neuts (auto) (1.5-7.7) 10^3/ul Absolute Lymphs (auto) (1.0-4.8) 10^3/ul Absolute Monos (auto) (0-0.8) 10^3/ul Absolute Eos (auto) (0-0.6) 10^3/ul Absolute Basos (auto) (0-0.2) 10^3/ul Absolute Nucleated RBC 10^3/ul Nucleated RBC % APTT 42.2 H (26.0-36.3) seconds Patient Temperature ABG pH (7.35-7.45) ABG pH (Temp Correct) ABG pCO2 (35-45) mmHg ABG pCO2 (Temp Corrct ABG pO2 (80-100) mmHg ABG pO2 (Temp Correct ABG HCO3 (19-31) mmol/L ABG O2 Saturation (95-98) % ABG Base Excess (-2.0-2.0) Respiration Rate Ventilator Type Vent Mode FiO2 Inspiratory Time PEEP Pressure Support Pressure Control EPAP IPAP BiPAP Sodium 138 (133-145) mmol/L Potassium 4.2 (3.5-5.0) mmol/L Chloride 101 (101-111) mmol/L Carbon Dioxide 28 (22-32) mmol/L Anion Gap 9 (2-11) mmol/L BUN 38 H (6-24) mg/dL Creatinine 1.50 H (0.51-0.95) mg/dL Est GFR ( Amer) 42.9 (>60) Est GFR (Non-Af Amer) 33.3 (>60) BUN/Creatinine Ratio 25.3 H (8-20) Glucose 142 H (70-100) mg/dL Lactic Acid (0.5-2.0) mmol/L Calcium 9.7 (8.6-10.3) mg/dL Total Bilirubin 0.80 (0.2-1.0) mg/dL AST 57 H (13-39) U/L ALT 51 (7-52) U/L Alkaline Phosphatase 131 H (34-104) U/L Total Creatine Kinase 61 (10-223) U/L CK-MB (CK-2) 5.9 (0.6-6.3) ng/mL Troponin I 0.16 H* (<0.04) ng/mL C-Reactive Protein 17.84 H (< 5.00) mg/L B-Natriuretic Peptide 3748 H ( - 100) pg/mL Total Protein 8.3 (6.4-8.9) g/dL Albumin 3.8 (3.2-5.2) g/dL Globulin 4.5 H (2-4) g/dL Albumin/Globulin Ratio 0.8 L (1-3) Influenza A (Rapid) (Negative) Influenza B (Rapid) (Negative) 08/05/17 08/05/17 08/05/17 Range/Units 10:17 10:17 10:31 WBC 7.9 (3.5-10.8) 10^3/ul RBC 4.03 (4.0-5.4) 10^6/ul Hgb 12.9 (12.0-16.0) g/dl Hct 39 (35-47) % MCV 97 (80-97) fL MCH 32 H (27-31) pg MCHC 33 (31-36) g/dl RDW 16 H (10.5-15) % Plt Count 217 (150-450) 10^3/ul MPV 10 (7.4-10.4) um3 Neut % (Auto) 73.6 (38-83) % Lymph % (Auto) 19.6 L (25-47) % Kenton % (Auto) 6.2 (1-9) % Eos % (Auto) 0.1 (0-6) % Baso % (Auto) 0.5 (0-2) % Absolute Neuts (auto) 5.8 (1.5-7.7) 10^3/ul Absolute Lymphs (auto) 1.6 (1.0-4.8) 10^3/ul Absolute Monos (auto) 0.5 (0-0.8) 10^3/ul Absolute Eos (auto) 0 (0-0.6) 10^3/ul Absolute Basos (auto) 0 (0-0.2) 10^3/ul Absolute Nucleated RBC 0 10^3/ul Nucleated RBC % 0.2 APTT (26.0-36.3) seconds Patient Temperature ABG pH (7.35-7.45) ABG pH (Temp Correct) ABG pCO2 (35-45) mmHg ABG pCO2 (Temp Corrct ABG pO2 (80-100) mmHg ABG pO2 (Temp Correct ABG HCO3 (19-31) mmol/L ABG O2 Saturation (95-98) % ABG Base Excess (-2.0-2.0) Respiration Rate Ventilator Type Vent Mode FiO2 Inspiratory Time PEEP Pressure Support Pressure Control EPAP IPAP BiPAP Sodium (133-145) mmol/L Potassium (3.5-5.0) mmol/L Chloride (101-111) mmol/L Carbon Dioxide (22-32) mmol/L Anion Gap (2-11) mmol/L BUN (6-24) mg/dL Creatinine (0.51-0.95) mg/dL Est GFR ( Amer) (>60) Est GFR (Non-Af Amer) (>60) BUN/Creatinine Ratio (8-20) Glucose (70-100) mg/dL Lactic Acid 2.3 H* (0.5-2.0) mmol/L Calcium (8.6-10.3) mg/dL Total Bilirubin (0.2-1.0) mg/dL AST (13-39) U/L ALT (7-52) U/L Alkaline Phosphatase (34-104) U/L Total Creatine Kinase (10-223) U/L CK-MB (CK-2) (0.6-6.3) ng/mL Troponin I (<0.04) ng/mL C-Reactive Protein (< 5.00) mg/L B-Natriuretic Peptide ( - 100) pg/mL Total Protein (6.4-8.9) g/dL Albumin (3.2-5.2) g/dL Globulin (2-4) g/dL Albumin/Globulin Ratio (1-3) Influenza A (Rapid) Negative (Negative) Influenza B (Rapid) Negative (Negative) 08/05/17 Range/Units 10:35 WBC (3.5-10.8) 10^3/ul RBC (4.0-5.4) 10^6/ul Hgb (12.0-16.0) g/dl Hct (35-47) % MCV (80-97) fL MCH (27-31) pg MCHC (31-36) g/dl RDW (10.5-15) % Plt Count (150-450) 10^3/ul MPV (7.4-10.4) um3 Neut % (Auto) (38-83) % Lymph % (Auto) (25-47) % Kenton % (Auto) (1-9) % Eos % (Auto) (0-6) % Baso % (Auto) (0-2) % Absolute Neuts (auto) (1.5-7.7) 10^3/ul Absolute Lymphs (auto) (1.0-4.8) 10^3/ul Absolute Monos (auto) (0-0.8) 10^3/ul Absolute Eos (auto) (0-0.6) 10^3/ul Absolute Basos (auto) (0-0.2) 10^3/ul Absolute Nucleated RBC 10^3/ul Nucleated RBC % APTT (26.0-36.3) seconds Patient Temperature Not Reportable ABG pH 7.34 L (7.35-7.45) ABG pH (Temp Correct) Not Reportable ABG pCO2 50 H (35-45) mmHg ABG pCO2 (Temp Corrct Not Reportable ABG pO2 69 L (80-100) mmHg ABG pO2 (Temp Correct Not Reportable ABG HCO3 25.3 (19-31) mmol/L ABG O2 Saturation 96.0 (95-98) % ABG Base Excess 0.6 (-2.0-2.0) Respiration Rate Not Reportable Ventilator Type Not Reportable Vent Mode Not Reportable FiO2 3 Inspiratory Time Not Reportable PEEP Not Reportable Pressure Support Not Reportable Pressure Control Not Reportable EPAP Not Reportable IPAP Not Reportable BiPAP Not Reportable Sodium (133-145) mmol/L Potassium (3.5-5.0) mmol/L Chloride (101-111) mmol/L Carbon Dioxide (22-32) mmol/L Anion Gap (2-11) mmol/L BUN (6-24) mg/dL Creatinine (0.51-0.95) mg/dL Est GFR ( Amer) (>60) Est GFR (Non-Af Amer) (>60) BUN/Creatinine Ratio (8-20) Glucose (70-100) mg/dL Lactic Acid (0.5-2.0) mmol/L Calcium (8.6-10.3) mg/dL Total Bilirubin (0.2-1.0) mg/dL AST (13-39) U/L ALT (7-52) U/L Alkaline Phosphatase (34-104) U/L Total Creatine Kinase (10-223) U/L CK-MB (CK-2) (0.6-6.3) ng/mL Troponin I (<0.04) ng/mL C-Reactive Protein (< 5.00) mg/L B-Natriuretic Peptide ( - 100) pg/mL Total Protein (6.4-8.9) g/dL Albumin (3.2-5.2) g/dL Globulin (2-4) g/dL Albumin/Globulin Ratio (1-3) Influenza A (Rapid) (Negative) Influenza B (Rapid) (Negative) Microbiology and Other Data: Microbiology 08/06/17 20:21 Gram Stain - Final Sputum Expectorated Sputum Culture - Final YEAST Normal Jolly 08/05/17 17:31 Nasal Screen MRSA (PCR)(SUDHEER) - Final Nasal Mrsa Not Detected Assess/Plan/Problems-Billing Assessment: 81 yo F h/o sAS, recent pyelo s/p nephrostomy p/w acute respiratory failure in setting of decompensated heart failure - Patient Problems (1) Diastolic heart failure Comment: torsemide started 08/09 weaned to nasal cannula (2) Aortic stenosis Comment: Critical , valve area 0.4 cm2 on echo 08/05/17. She had refused repari 4 yrs ago. Hospice consult requested. Dr. Bang discussed this with her daughter, Meryl. Torsemide 20 mg po daily started 08/09 Goal to maintain neutral fluid balance from here on. KCL ordered to start 08/08. (3) Dementia Comment: Her eating is erratic, likely not enough to sustain her. (4) End of life care Comment: SL MS, atropin, lorazepam PRN ordered. Daughter seems to have much support at home and is capable of managing the patient at home, but might agree to care at the Hospice residence.
[2017-08-09] MEDS ORDERED: Torsemide TAB* 20 MG PO SCH (09:00)
[2017-08-09] MEDS: Digoxin TAB* 0.125 MG PO SCH (10:25)
[2017-08-09] MEDS: Torsemide TAB* 20 MG PO SCH (10:25)
[2017-08-09] MEDS: Lisinopril TAB* 10 MG PO SCH (10:25)
[2017-08-09] MEDS: Potassium Chlor TAB* 20 MEQ TAB.ER PO SCH (10:26)
[2017-08-09] MEDS: Mometasone 220 MCG MDI INH SCH (21:23)
[2017-08-10] MEDS: Lisinopril TAB* 10 MG PO SCH (08:48)
[2017-08-10] MEDS: Digoxin TAB* 0.125 MG PO SCH (08:48)
[2017-08-10] MEDS: Potassium Chlor TAB* 20 MEQ TAB.ER PO SCH (08:48)
[2017-08-10] MEDS: Torsemide TAB* 20 MG PO SCH (08:48)
--- NOTE | 2017-08-10 18:58 | PN ---
Subjective Date of Service: 08/10/17 Interval History: Unable to make needs known Objective Active Medications: Acetaminophen (Tylenol Tab*) 650 mg PO Q4H PRN PRN Reason: FEVER/PAIN Atropine Sulfate (Atropine 1% (Oral/Sl)*) 2 drop SL Q2H PRN PRN Reason: DISCOMFORT Digoxin (Lanoxin Tab*) 0.125 mg PO DAILY [facility] Last Admin: 08/10/17 08:48 Dose: 0.125 mg Lisinopril (Prinivil Tab*) 10 mg PO DAILY [facility] Last Admin: 08/10/17 08:48 Dose: 10 mg Lorazepam (Ativan Tab(*)) 0.5 mg PO Q4H PRN PRN Reason: ANXIETY Lorazepam (Ativan Tab(*)) 0.5 mg SL Q4H PRN PRN Reason: ANXIETY Last Admin: 08/09/17 23:21 Dose: 0.5 mg Mometasone Furoate (Asmanex 220 Mcg Mdi *) 2 puff INH 2100 [facility] Last Admin: 08/09/17 21:23 Dose: Not Given Morphine Sulfate (Morphine Oral Concentrate*) 5 mg SL Q30M PRN PRN Reason: PAIN Ondansetron HCl (Zofran Inj*) 4 mg IV Q4H PRN PRN Reason: NAUSEA/VOMITING Potassium Chloride (Klor Con Er Tab*) 20 meq PO DAILY [facility] Last Admin: 08/10/17 08:48 Dose: 20 meq Torsemide (Demadex*) 20 mg PO DAILY [facility] Last Admin: 08/10/17 08:48 Dose: 20 mg Vital Signs - 8 hr 08/10/17 08/10/17 15:07 15:43 Temperature 98.1 F 98.1 F Pulse Rate 56 66 Respiratory 20 20 Rate Blood Pressure 120/57 120/57 (mmHg) O2 Sat by Pulse 100 100 Oximetry Oxygen Devices in Use Now: Nasal Cannula, High Flow Nasal Cannula Appearance: NAD Eyes: No Scleral Icterus Ears/Nose/Mouth/Throat: Clear Oropharnyx, Mucous Membranes Moist Neck: NL Appearance and Movements; NL JVP, Trachea Midline Respiratory: Symmetrical Chest Expansion and Respiratory Effort Cardiovascular: RRR Neurological: - - AOX1 Result Diagrams: 08/08/17 05:30 08/07/17 05:47 Additional Lab and Data: Lab Results 08/05/17 08/05/17 08/05/17 Range/Units 10:17 10:17 10:17 WBC (3.5-10.8) 10^3/ul RBC (4.0-5.4) 10^6/ul Hgb (12.0-16.0) g/dl Hct (35-47) % MCV (80-97) fL MCH (27-31) pg MCHC (31-36) g/dl RDW (10.5-15) % Plt Count (150-450) 10^3/ul MPV (7.4-10.4) um3 Neut % (Auto) (38-83) % Lymph % (Auto) (25-47) % Quay % (Auto) (1-9) % Eos % (Auto) (0-6) % Baso % (Auto) (0-2) % Absolute Neuts (auto) (1.5-7.7) 10^3/ul Absolute Lymphs (auto) (1.0-4.8) 10^3/ul Absolute Monos (auto) (0-0.8) 10^3/ul Absolute Eos (auto) (0-0.6) 10^3/ul Absolute Basos (auto) (0-0.2) 10^3/ul Absolute Nucleated RBC 10^3/ul Nucleated RBC % APTT 42.2 H (26.0-36.3) seconds Patient Temperature ABG pH (7.35-7.45) ABG pH (Temp Correct) ABG pCO2 (35-45) mmHg ABG pCO2 (Temp Corrct ABG pO2 (80-100) mmHg ABG pO2 (Temp Correct ABG HCO3 (19-31) mmol/L ABG O2 Saturation (95-98) % ABG Base Excess (-2.0-2.0) Respiration Rate Ventilator Type Vent Mode FiO2 Inspiratory Time PEEP Pressure Support Pressure Control EPAP IPAP BiPAP Sodium 138 (133-145) mmol/L Potassium 4.2 (3.5-5.0) mmol/L Chloride 101 (101-111) mmol/L Carbon Dioxide 28 (22-32) mmol/L Anion Gap 9 (2-11) mmol/L BUN 38 H (6-24) mg/dL Creatinine 1.50 H (0.51-0.95) mg/dL Est GFR ( Amer) 42.9 (>60) Est GFR (Non-Af Amer) 33.3 (>60) BUN/Creatinine Ratio 25.3 H (8-20) Glucose 142 H (70-100) mg/dL Lactic Acid (0.5-2.0) mmol/L Calcium 9.7 (8.6-10.3) mg/dL Total Bilirubin 0.80 (0.2-1.0) mg/dL AST 57 H (13-39) U/L ALT 51 (7-52) U/L Alkaline Phosphatase 131 H (34-104) U/L Total Creatine Kinase 61 (10-223) U/L CK-MB (CK-2) 5.9 (0.6-6.3) ng/mL Troponin I 0.16 H* (<0.04) ng/mL C-Reactive Protein 17.84 H (< 5.00) mg/L B-Natriuretic Peptide 3748 H ( - 100) pg/mL Total Protein 8.3 (6.4-8.9) g/dL Albumin 3.8 (3.2-5.2) g/dL Globulin 4.5 H (2-4) g/dL Albumin/Globulin Ratio 0.8 L (1-3) Influenza A (Rapid) (Negative) Influenza B (Rapid) (Negative) 08/05/17 08/05/17 08/05/17 Range/Units 10:17 10:17 10:31 WBC 7.9 (3.5-10.8) 10^3/ul RBC 4.03 (4.0-5.4) 10^6/ul Hgb 12.9 (12.0-16.0) g/dl Hct 39 (35-47) % MCV 97 (80-97) fL MCH 32 H (27-31) pg MCHC 33 (31-36) g/dl RDW 16 H (10.5-15) % Plt Count 217 (150-450) 10^3/ul MPV 10 (7.4-10.4) um3 Neut % (Auto) 73.6 (38-83) % Lymph % (Auto) 19.6 L (25-47) % Quay % (Auto) 6.2 (1-9) % Eos % (Auto) 0.1 (0-6) % Baso % (Auto) 0.5 (0-2) % Absolute Neuts (auto) 5.8 (1.5-7.7) 10^3/ul Absolute Lymphs (auto) 1.6 (1.0-4.8) 10^3/ul Absolute Monos (auto) 0.5 (0-0.8) 10^3/ul Absolute Eos (auto) 0 (0-0.6) 10^3/ul Absolute Basos (auto) 0 (0-0.2) 10^3/ul Absolute Nucleated RBC 0 10^3/ul Nucleated RBC % 0.2 APTT (26.0-36.3) seconds Patient Temperature ABG pH (7.35-7.45) ABG pH (Temp Correct) ABG pCO2 (35-45) mmHg ABG pCO2 (Temp Corrct ABG pO2 (80-100) mmHg ABG pO2 (Temp Correct ABG HCO3 (19-31) mmol/L ABG O2 Saturation (95-98) % ABG Base Excess (-2.0-2.0) Respiration Rate Ventilator Type Vent Mode FiO2 Inspiratory Time PEEP Pressure Support Pressure Control EPAP IPAP BiPAP Sodium (133-145) mmol/L Potassium (3.5-5.0) mmol/L Chloride (101-111) mmol/L Carbon Dioxide (22-32) mmol/L Anion Gap (2-11) mmol/L BUN (6-24) mg/dL Creatinine (0.51-0.95) mg/dL Est GFR ( Amer) (>60) Est GFR (Non-Af Amer) (>60) BUN/Creatinine Ratio (8-20) Glucose (70-100) mg/dL Lactic Acid 2.3 H* (0.5-2.0) mmol/L Calcium (8.6-10.3) mg/dL Total Bilirubin (0.2-1.0) mg/dL AST (13-39) U/L ALT (7-52) U/L Alkaline Phosphatase (34-104) U/L Total Creatine Kinase (10-223) U/L CK-MB (CK-2) (0.6-6.3) ng/mL Troponin I (<0.04) ng/mL C-Reactive Protein (< 5.00) mg/L B-Natriuretic Peptide ( - 100) pg/mL Total Protein (6.4-8.9) g/dL Albumin (3.2-5.2) g/dL Globulin (2-4) g/dL Albumin/Globulin Ratio (1-3) Influenza A (Rapid) Negative (Negative) Influenza B (Rapid) Negative (Negative) 08/05/17 Range/Units 10:35 WBC (3.5-10.8) 10^3/ul RBC (4.0-5.4) 10^6/ul Hgb (12.0-16.0) g/dl Hct (35-47) % MCV (80-97) fL MCH (27-31) pg MCHC (31-36) g/dl RDW (10.5-15) % Plt Count (150-450) 10^3/ul MPV (7.4-10.4) um3 Neut % (Auto) (38-83) % Lymph % (Auto) (25-47) % Quay % (Auto) (1-9) % Eos % (Auto) (0-6) % Baso % (Auto) (0-2) % Absolute Neuts (auto) (1.5-7.7) 10^3/ul Absolute Lymphs (auto) (1.0-4.8) 10^3/ul Absolute Monos (auto) (0-0.8) 10^3/ul Absolute Eos (auto) (0-0.6) 10^3/ul Absolute Basos (auto) (0-0.2) 10^3/ul Absolute Nucleated RBC 10^3/ul Nucleated RBC % APTT (26.0-36.3) seconds Patient Temperature Not Reportable ABG pH 7.34 L (7.35-7.45) ABG pH (Temp Correct) Not Reportable ABG pCO2 50 H (35-45) mmHg ABG pCO2 (Temp Corrct Not Reportable ABG pO2 69 L (80-100) mmHg ABG pO2 (Temp Correct Not Reportable ABG HCO3 25.3 (19-31) mmol/L ABG O2 Saturation 96.0 (95-98) % ABG Base Excess 0.6 (-2.0-2.0) Respiration Rate Not Reportable Ventilator Type Not Reportable Vent Mode Not Reportable FiO2 3 Inspiratory Time Not Reportable PEEP Not Reportable Pressure Support Not Reportable Pressure Control Not Reportable EPAP Not Reportable IPAP Not Reportable BiPAP Not Reportable Sodium (133-145) mmol/L Potassium (3.5-5.0) mmol/L Chloride (101-111) mmol/L Carbon Dioxide (22-32) mmol/L Anion Gap (2-11) mmol/L BUN (6-24) mg/dL Creatinine (0.51-0.95) mg/dL Est GFR ( Amer) (>60) Est GFR (Non-Af Amer) (>60) BUN/Creatinine Ratio (8-20) Glucose (70-100) mg/dL Lactic Acid (0.5-2.0) mmol/L Calcium (8.6-10.3) mg/dL Total Bilirubin (0.2-1.0) mg/dL AST (13-39) U/L ALT (7-52) U/L Alkaline Phosphatase (34-104) U/L Total Creatine Kinase (10-223) U/L CK-MB (CK-2) (0.6-6.3) ng/mL Troponin I (<0.04) ng/mL C-Reactive Protein (< 5.00) mg/L B-Natriuretic Peptide ( - 100) pg/mL Total Protein (6.4-8.9) g/dL Albumin (3.2-5.2) g/dL Globulin (2-4) g/dL Albumin/Globulin Ratio (1-3) Influenza A (Rapid) (Negative) Influenza B (Rapid) (Negative) Microbiology and Other Data: Microbiology 08/06/17 20:21 Gram Stain - Final Sputum Expectorated Sputum Culture - Final YEAST Normal Jolly 08/05/17 17:31 Nasal Screen MRSA (PCR)(SUDHEER) - Final Nasal Mrsa Not Detected Assess/Plan/Problems-Billing Assessment: 81 yo F h/o sAS, recent pyelo s/p nephrostomy p/w acute respiratory failure in setting of decompensated heart failure - Patient Problems (1) Diastolic heart failure Comment: torsemide started 08/09 weaned to nasal cannula (2) Aortic stenosis Comment: Critical , valve area 0.4 cm2 on echo 08/05/17. She had refused repari 4 yrs ago. Hospice consult requested. Dr. Bang discussed this with her daughter, Meryl. Torsemide 20 mg po daily started 08/09 Goal to maintain neutral fluid balance from here on. KCL ordered to start 08/08. (3) Dementia Comment: Her eating is erratic, likely not enough to sustain her. (4) End of life care Comment: SL MS, atropin, lorazepam PRN ordered. Daughter seems to have much support at home and is capable of managing the patient at home, but might agree to care at the Hospice residence.
[2017-08-10] MEDS: LORazepam TAB(*) 0.5 MG PO PRN (19:34)
[2017-08-10] MEDS ORDERED: Artificial Tears* 15 ML BTL BOTH EYES PRN (20:42)
[2017-08-10] MEDS: Mometasone 220 MCG MDI INH SCH (20:50)
[2017-08-11] MEDS: LORazepam TAB(*) 0.5 MG PO PRN ×2 (02:15→21:48)
[2017-08-11] MEDS: Lisinopril TAB* 10 MG PO SCH (10:48)
[2017-08-11] MEDS: Digoxin TAB* 0.125 MG PO SCH (10:48)
[2017-08-11] MEDS: Torsemide TAB* 20 MG PO SCH (10:48)
[2017-08-11] MEDS: Potassium Chlor TAB* 20 MEQ TAB.ER PO SCH (10:48)
--- NOTE | 2017-08-11 12:10 | CONSULT ---
Palliative / Hospice Consult Ordering Provider: Edilson Lynch - Subjective Code Status: DNR Advance Directives Location: In Chart MOLST Part A Completed: Yes MOLST Part E Completed:: Yes HCP Completed: Yes - daughter Meryl Light - History or Present Illness History or Present Illness: This 81 year old woman was admitted 08/05/17 with respiratory distress and worsening fluid retention, required ICU intervention for acute heart failure and cardiogenic shock with right heart failure. The patient had an echocardiogram done 08/05/17 that revealed a decline in EF from 45% to 25%, LV hypokinesis and worsening valvular disease with moderate MR and now CRITICAL (44 mmHg gradient across valve and ANITA of 0.4cm2). Although her fluid balance is now well controlled, the patient has not "bounced back" in terms of mental status, and in addition to being minimally responsive, she is eating very poorly. Since December, the patient has been living in the home of her daughter and HCP, Meryl Light, who has handicapped accessible housing and aides hired for 10.5 hours daily. She does not want her mother to have a Toney. She had a nephrostomy tube placed in May, and this is supposed to be changed or removed after 12 weeks at [facility] or by Dr. Eder Burroughs. Lab Values: Laboratory Last Values WBC 7.6 10^3/ul (3.5-10.8) 08/06/17 05:30 RBC 3.16 10^6/ul (4.0-5.4) L 08/06/17 05:30 Hgb 11.2 g/dl (12.0-16.0) L 08/08/17 05:30 Hct 35 % (35-47) 08/08/17 05:30 MCV 96 fL (80-97) 08/06/17 05:30 MCH 32 pg (27-31) H 08/06/17 05:30 MCHC 34 g/dl (31-36) 08/06/17 05:30 RDW 15 % (10.5-15) 08/06/17 05:30 Plt Count 164 10^3/ul (150-450) 08/08/17 05:30 MPV 10 um3 (7.4-10.4) 08/08/17 05:30 Neut % (Auto) 77.5 % (38-83) 08/06/17 05:30 Lymph % (Auto) 17.2 % (25-47) L 08/06/17 05:30 [place] % (Auto) 4.9 % (1-9) 08/06/17 05:30 Eos % (Auto) 0 % (0-6) 08/06/17 05:30 Baso % (Auto) 0.4 % (0-2) 08/06/17 05:30 Absolute Neuts (auto) 5.9 10^3/ul (1.5-7.7) 08/06/17 05:30 Absolute Lymphs (auto) 1.3 10^3/ul (1.0-4.8) 08/06/17 05:30 Absolute Monos (auto) 0.4 10^3/ul (0-0.8) 08/06/17 05:30 Absolute Eos (auto) 0 10^3/ul (0-0.6) 08/06/17 05:30 Absolute Basos (auto) 0 10^3/ul (0-0.2) 08/06/17 05:30 Absolute Nucleated RBC 0 10^3/ul 08/06/17 05:30 Nucleated RBC % 0 08/06/17 05:30 INR (Anticoag Therapy) 4.81 (0.77-1.02) H 08/08/17 05:30 APTT 42.2 seconds (26.0-36.3) H 08/05/17 10:17 Patient Temperature Not Reportable 08/05/17 12:40 ABG pH 7.38 (7.35-7.45) 08/05/17 12:40 ABG pH (Temp Correct) Not Reportable 08/05/17 12:40 ABG pCO2 48 mmHg (35-45) H 08/05/17 12:40 ABG pCO2 (Temp Corrct Not Reportable 08/05/17 12:40 ABG pO2 136 mmHg (80-100) H 08/05/17 12:40 ABG pO2 (Temp Correct Not Reportable 08/05/17 12:40 ABG HCO3 27.0 mmol/L (19-31) 08/05/17 12:40 ABG O2 Saturation 100.0 % (95-98) H 08/05/17 12:40 ABG Base Excess 2.7 (-2.0-2.0) H 08/05/17 12:40 Respiration Rate Not Reportable 08/05/17 12:40 Ventilator Type Not Reportable 08/05/17 12:40 Vent Mode Not Reportable 08/05/17 12:40 FiO2 40 08/05/17 12:40 Inspiratory Time Not Reportable 08/05/17 12:40 PEEP Not Reportable 08/05/17 12:40 Pressure Support Not Reportable 08/05/17 12:40 Pressure Control Not Reportable 08/05/17 12:40 EPAP 6 08/05/17 12:40 IPAP 12 08/05/17 12:40 BiPAP s/t 08/05/17 12:40 Sodium 145 mmol/L (133-145) 08/07/17 05:47 Potassium 3.2 mmol/L (3.5-5.0) L 08/07/17 05:47 Chloride 103 mmol/L (101-111) 08/07/17 05:47 Carbon Dioxide 36 mmol/L (22-32) H 08/07/17 05:47 Anion Gap 6 mmol/L (2-11) 08/07/17 05:47 BUN 48 mg/dL (6-24) H 08/07/17 05:47 Creatinine 1.57 mg/dL (0.51-0.95) H 08/07/17 05:47 Est GFR ( Amer) 40.7 (>60) 08/07/17 05:47 Est GFR (Non-Af Amer) 31.6 (>60) 08/07/17 05:47 BUN/Creatinine Ratio 30.6 (8-20) H 08/07/17 05:47 Glucose 71 mg/dL (70-100) 08/07/17 05:47 Lactic Acid 0.8 mmol/L (0.5-2.0) 08/05/17 13:26 Calcium 8.9 mg/dL (8.6-10.3) 08/07/17 05:47 Phosphorus 3.6 mg/dL (2.5-5.0) 08/07/17 05:47 Magnesium 1.5 mg/dL (1.9-2.7) L 08/07/17 05:47 Total Bilirubin 0.50 mg/dL (0.2-1.0) 08/06/17 05:30 AST 29 U/L (13-39) 08/06/17 05:30 ALT 28 U/L (7-52) 08/06/17 05:30 Alkaline Phosphatase 74 U/L (34-104) 08/06/17 05:30 Total Creatine Kinase 61 U/L (10-223) 08/05/17 10:17 CK-MB (CK-2) 5.9 ng/mL (0.6-6.3) 08/05/17 10:17 Troponin I 0.14 ng/mL (<0.04) H* 08/05/17 13:26 C-Reactive Protein 17.84 mg/L (< 5.00) H 08/05/17 10:17 B-Natriuretic Peptide 3748 pg/mL (-100) H 08/05/17 10:17 Total Protein 6.1 g/dL (6.4-8.9) L 08/06/17 05:30 Albumin 2.8 g/dL (3.2-5.2) L 08/06/17 05:30 Globulin 3.3 g/dL (2-4) 08/06/17 05:30 Albumin/Globulin Ratio 0.8 (1-3) L 08/06/17 05:30 Urine Color Sara 08/05/17 11:44 Urine Appearance Cloudy 08/05/17 11:44 Urine pH 5.0 (5-9) 08/05/17 11:44 Ur Specific [place] 1.022 (1.010-1.030) 08/05/17 11:44 Urine Protein 3+(>=500 mg/dl) (Negative) H 08/05/17 11:44 Urine Ketones Negative (Negative) 08/05/17 11:44 Urine Blood Negative (Negative) 08/05/17 11:44 Urine Nitrate Negative (Negative) 08/05/17 11:44 Urine Bilirubin Negative (Negative) 08/05/17 11:44 Urine Urobilinogen Negative (Negative) 08/05/17 11:44 Ur Leukocyte Esterase Trace (Negative) H 08/05/17 11:44 Urine WBC (Auto) 3+(>20/hpf) (Absent) H 08/05/17 11:44 Urine RBC (Auto) Trace(0-2/hpf) (Absent) 08/05/17 11:44 Ur Squamous Epith Cells Present (Absent) H 08/05/17 11:44 Urine Bacteria Absent (Absent) 08/05/17 11:44 Hyaline Casts Present (Absent) H 08/05/17 11:44 Urine Glucose Negative (Negative) 08/05/17 11:44 Urine Ascorbic Acid * (Negative) H 08/05/17 11:44 Influenza A (Rapid) Negative (Negative) 08/05/17 10:31 Influenza B (Rapid) Negative (Negative) 08/05/17 10:31 - Objective Active Medications: Acetaminophen (Tylenol Tab*) 650 mg PO Q4H PRN PRN Reason: FEVER/PAIN Atropine Sulfate (Atropine 1% (Oral/Sl)*) 2 drop SL Q2H PRN PRN Reason: DISCOMFORT Digoxin (Lanoxin Tab*) 0.125 mg PO DAILY [facility] Last Admin: 08/11/17 10:48 Dose: Not Given Lisinopril (Prinivil Tab*) 10 mg PO DAILY [facility] Last Admin: 08/11/17 10:48 Dose: 10 mg Lorazepam (Ativan Tab(*)) 0.5 mg PO Q4H PRN PRN Reason: ANXIETY Last Admin: 08/11/17 02:15 Dose: 0.5 mg Lorazepam (Ativan Tab(*)) 0.5 mg SL Q4H PRN PRN Reason: ANXIETY Last Admin: 08/09/17 23:21 Dose: 0.5 mg Mometasone Furoate (Asmanex 220 Mcg Mdi *) 2 puff INH 2100 [facility] Last Admin: 08/10/17 20:50 Dose: Not Given Morphine Sulfate (Morphine Oral Concentrate*) 5 mg SL Q30M PRN PRN Reason: PAIN Ondansetron HCl (Zofran Inj*) 4 mg IV Q4H PRN PRN Reason: NAUSEA/VOMITING Polyvinyl Alcohol (Polyvinyl Alcohol 1.4% Opth*) 1 drop BOTH EYES Q2H PRN PRN Reason: DRY EYE Potassium Chloride (Klor Con Er Tab*) 20 meq PO DAILY [facility] Last Admin: 08/11/17 10:48 Dose: 20 meq Torsemide (Demadex*) 20 mg PO DAILY [facility] Last Admin: 08/11/17 10:48 Dose: 20 mg Vital Signs: Vital Signs: Temp Pulse Resp BP Pulse Ox 96.8 F 50 16 107/43 99 02/13/18 07:45 08/11/17 10:48 08/11/17 07:45 08/11/17 07:45 08/11/17 08:39 Patient Weight: Weight 110 lb 7.225 oz Intake and Output: Intake & Output 08/09/17 08/10/17 08/11/17 08/12/17 06:59 06:59 06:59 06:59 Intake Total 510 990 650 0 Output Total 1375 1125 1250 425 Balance -865 -135 -600 -425 Intake: Oral 510 990 650 0 Output: Urine 550 [place] 825 1125 1250 425 Other: Date of Last Bowel 08/10/17 Movement # Bowel Movements 0 1 Estimated Stool Amount Small Medium ADLs: Meal Record Start: 08/05/17 13: 12 Freq: ,, Status: Complete Protocol: Document 08/05/17 18:00 [id number] (Rec: 08/05/17 19:02 [id number] ICU-C06) Document 08/06/17 09:00 [id number] (Rec: 08/06/17 09:06 [id number] ICU-C06) Document 08/06/17 13:00 [id number] (Rec: 08/06/17 13:23 [id number] ICU-M07) Document 08/06/17 18:00 [id number] (Rec: 08/06/17 18:26 [id number] ICU-C06) Document 08/07/17 09:00 [id number] (Rec: 08/07/17 13:52 [id number] ICU-C06) Document 08/07/17 13:00 [id number] (Rec: 08/07/17 13:56 [id number] ICU-C14) ADLs: Meal Record Start: 08/07/17 21: 56 Freq: Status: Active Protocol: Created 08/07/17 21:56 [id number] (Rec: 08/07/17 21:56 [id number] TELE-C08) Document 08/08/17 12:05 [id number] (Rec: 08/08/17 12:06 [id number] TELE-C11) Document 08/08/17 13:12 [id number] (Rec: 08/08/17 13:12 [id number] TELE-C11) Document 08/09/17 14:52 [id number] (Rec: 08/09/17 14:52 [id number] TELE-C08) Document 08/09/17 22:07 [id number] (Rec: 08/09/17 22:08 [id number] TELE-C03) Document 08/10/17 08:40 [id number] (Rec: 08/10/17 08:40 [id number] TELE-C07) Document 08/10/17 12:40 [id number] (Rec: 08/10/17 12:40 [id number] TELE-C11) Document 08/11/17 11:52 [id number] (Rec: 08/11/17 11:52 [id number] MED-C11) Intake and Output Start: 08/05/17 13: 12 Freq: 06,14,22 Status: Complete Protocol: Document 08/05/17 14:00 [id number] (Rec: 08/05/17 15:08 [id number] ICU-C06) Document 08/05/17 22:00 [id number] (Rec: 08/05/17 22:47 [id number] ICU-C07) Document 08/06/17 06:00 [id number] (Rec: 08/06/17 06:20 [id number] ICU-M07) Document 08/06/17 13:27 [id number] (Rec: 08/06/17 13:27 [id number] ICU-M07) Document 08/06/17 22:00 [id number] (Rec: 08/06/17 22:01 [id number] ICU-M07) Document 08/07/17 06:00 [id number] (Rec: 08/07/17 06:09 [id number] ICU-C20) Document 08/07/17 13:55 [id number] (Rec: 08/07/17 13:55 [id number] ICU-C14) Intake and Output Start: 08/07/17 21: 56 Freq: Status: Active Protocol: Document 08/07/17 21:56 [id number] (Rec: 08/07/17 21:58 [id number] TELE-C08) Created 08/07/17 21:56 [id number] (Rec: 08/07/17 21:56 [id number] TELE-C08) Document 08/08/17 05:53 [id number] (Rec: 08/08/17 05:53 [id number] TELE-C13) Document 08/08/17 14:39 [id number] (Rec: 08/08/17 14:39 [id number] TELE-C11) Document 08/08/17 22:29 [id number] (Rec: 08/08/17 22:30 [id number] TELE-C01) Document 08/10/17 10:42 [id number] (Rec: 08/10/17 10:43 [id number] HOSP-C11) Document 08/10/17 15:55 [id number] (Rec: 08/10/17 15:55 [id number] [facility]-RDC2) General Impression: Elderly woman not responding to questions, nonverbal, will not open eyes for observer. Head: Symmetrical Ears/Nose/Mouth/Throat: Clear Oropharnyx, Mucous Membranes Moist Neck: NL Appearance and Movements; NL JVP, Trachea Midline Cardiovascular: RRR Respiratory: Symmetrical Chest Expansion and Respiratory Effort Abdominal: NL Sounds; No Tenderness; No Distention, No Hepatosplenomegaly Extremities: - - 1-2+ nonpitting edema bilaterally, venous stasis change Neurological: - - AOX1 - Assessment Assessment: I spoke with this patient's daughter and HCP, Meryl Light, and she has a set up at home that allows for the patient's full time paramedic care there. She wants to bring her mother home, and would appreciate hospice support. Her mother qualifies for hospice services on the basis of her critical aortic stenosis and her CHF. Her BP is low now, reflecting her poor pump function and poor po intake , and she will get a fluid bolus at Dr. Song's request prior to discharge, but the patient can certainly be discharged home with hospice sign on within a few days. Thanks for asking for palliative input. - Plan Consult Plan (MU): Hospice - Time On Unit Date of Evaluation: 08/11/17 Hospice Consult Time in: 11:40 Hospice Consult Time Out: 13:00 Hospice Consult Time Total: 80 > 50% of Time Spend In Counseling or Coordinating Care: Yes
[2017-08-11] MEDS ORDERED: NS 0.9% 500 ML* 500 ML IV SCH (13:00)
--- NOTE | 2017-08-11 18:06 | PN ---
Subjective Date of Service: 08/11/17 Interval History: AOx0, sitting in chair, discussed care with daughter at bedside Objective Active Medications: Acetaminophen (Tylenol Tab*) 650 mg PO Q4H PRN PRN Reason: FEVER/PAIN Atropine Sulfate (Atropine 1% (Oral/Sl)*) 2 drop SL Q2H PRN PRN Reason: DISCOMFORT Digoxin (Lanoxin Tab*) 0.125 mg PO DAILY [facility] Last Admin: 08/11/17 10:48 Dose: Not Given Sodium Chloride (Ns 0.9% 500 Ml*) 500 mls @ 200 mls/hr IV PER RATE [facility] Last Admin: 08/11/17 14:30 Dose: 200 mls/hr Lisinopril (Prinivil Tab*) 10 mg PO DAILY [facility] Last Admin: 08/11/17 10:48 Dose: 10 mg Lorazepam (Ativan Tab(*)) 0.5 mg PO Q4H PRN PRN Reason: ANXIETY Last Admin: 08/11/17 02:15 Dose: 0.5 mg Lorazepam (Ativan Tab(*)) 0.5 mg SL Q4H PRN PRN Reason: ANXIETY Last Admin: 08/09/17 23:21 Dose: 0.5 mg Mometasone Furoate (Asmanex 220 Mcg Mdi *) 2 puff INH 2100 [facility] Last Admin: 08/10/17 20:50 Dose: Not Given Morphine Sulfate (Morphine Oral Concentrate*) 5 mg SL Q30M PRN PRN Reason: PAIN Ondansetron HCl (Zofran Inj*) 4 mg IV Q4H PRN PRN Reason: NAUSEA/VOMITING Polyvinyl Alcohol (Polyvinyl Alcohol 1.4% Opth*) 1 drop BOTH EYES Q2H PRN PRN Reason: DRY EYE Potassium Chloride (Klor Con Er Tab*) 20 meq PO DAILY [facility] Last Admin: 08/11/17 10:48 Dose: 20 meq Torsemide (Demadex*) 20 mg PO DAILY [facility] Last Admin: 08/11/17 10:48 Dose: 20 mg Vital Signs - 8 hr 08/11/17 08/11/17 08/11/17 10:48 11:36 15:14 Temperature 97.3 F 98.1 F Pulse Rate 50 138 60 Respiratory 16 20 Rate Blood Pressure 70/36 127/54 (mmHg) O2 Sat by Pulse 96 100 Oximetry Oxygen Devices in Use Now: Nasal Cannula Appearance: elderly, sitting in chair, AOx0. remainder of exam deferred for comfort Result Diagrams: 08/08/17 05:30 08/07/17 05:47 Additional Lab and Data: Lab Results 08/05/17 08/05/17 08/05/17 Range/Units 10:17 10:17 10:17 WBC (3.5-10.8) 10^3/ul RBC (4.0-5.4) 10^6/ul Hgb (12.0-16.0) g/dl Hct (35-47) % MCV (80-97) fL MCH (27-31) pg MCHC (31-36) g/dl RDW (10.5-15) % Plt Count (150-450) 10^3/ul MPV (7.4-10.4) um3 Neut % (Auto) (38-83) % Lymph % (Auto) (25-47) % Hale % (Auto) (1-9) % Eos % (Auto) (0-6) % Baso % (Auto) (0-2) % Absolute Neuts (auto) (1.5-7.7) 10^3/ul Absolute Lymphs (auto) (1.0-4.8) 10^3/ul Absolute Monos (auto) (0-0.8) 10^3/ul Absolute Eos (auto) (0-0.6) 10^3/ul Absolute Basos (auto) (0-0.2) 10^3/ul Absolute Nucleated RBC 10^3/ul Nucleated RBC % APTT 42.2 H (26.0-36.3) seconds Patient Temperature ABG pH (7.35-7.45) ABG pH (Temp Correct) ABG pCO2 (35-45) mmHg ABG pCO2 (Temp Corrct ABG pO2 (80-100) mmHg ABG pO2 (Temp Correct ABG HCO3 (19-31) mmol/L ABG O2 Saturation (95-98) % ABG Base Excess (-2.0-2.0) Respiration Rate Ventilator Type Vent Mode FiO2 Inspiratory Time PEEP Pressure Support Pressure Control EPAP IPAP BiPAP Sodium 138 (133-145) mmol/L Potassium 4.2 (3.5-5.0) mmol/L Chloride 101 (101-111) mmol/L Carbon Dioxide 28 (22-32) mmol/L Anion Gap 9 (2-11) mmol/L BUN 38 H (6-24) mg/dL Creatinine 1.50 H (0.51-0.95) mg/dL Est GFR ( Amer) 42.9 (>60) Est GFR (Non-Af Amer) 33.3 (>60) BUN/Creatinine Ratio 25.3 H (8-20) Glucose 142 H (70-100) mg/dL Lactic Acid (0.5-2.0) mmol/L Calcium 9.7 (8.6-10.3) mg/dL Total Bilirubin 0.80 (0.2-1.0) mg/dL AST 57 H (13-39) U/L ALT 51 (7-52) U/L Alkaline Phosphatase 131 H (34-104) U/L Total Creatine Kinase 61 (10-223) U/L CK-MB (CK-2) 5.9 (0.6-6.3) ng/mL Troponin I 0.16 H* (<0.04) ng/mL C-Reactive Protein 17.84 H (< 5.00) mg/L B-Natriuretic Peptide 3748 H ( - 100) pg/mL Total Protein 8.3 (6.4-8.9) g/dL Albumin 3.8 (3.2-5.2) g/dL Globulin 4.5 H (2-4) g/dL Albumin/Globulin Ratio 0.8 L (1-3) Influenza A (Rapid) (Negative) Influenza B (Rapid) (Negative) 08/05/17 08/05/17 08/05/17 Range/Units 10:17 10:17 10:31 WBC 7.9 (3.5-10.8) 10^3/ul RBC 4.03 (4.0-5.4) 10^6/ul Hgb 12.9 (12.0-16.0) g/dl Hct 39 (35-47) % MCV 97 (80-97) fL MCH 32 H (27-31) pg MCHC 33 (31-36) g/dl RDW 16 H (10.5-15) % Plt Count 217 (150-450) 10^3/ul MPV 10 (7.4-10.4) um3 Neut % (Auto) 73.6 (38-83) % Lymph % (Auto) 19.6 L (25-47) % Hale % (Auto) 6.2 (1-9) % Eos % (Auto) 0.1 (0-6) % Baso % (Auto) 0.5 (0-2) % Absolute Neuts (auto) 5.8 (1.5-7.7) 10^3/ul Absolute Lymphs (auto) 1.6 (1.0-4.8) 10^3/ul Absolute Monos (auto) 0.5 (0-0.8) 10^3/ul Absolute Eos (auto) 0 (0-0.6) 10^3/ul Absolute Basos (auto) 0 (0-0.2) 10^3/ul Absolute Nucleated RBC 0 10^3/ul Nucleated RBC % 0.2 APTT (26.0-36.3) seconds Patient Temperature ABG pH (7.35-7.45) ABG pH (Temp Correct) ABG pCO2 (35-45) mmHg ABG pCO2 (Temp Corrct ABG pO2 (80-100) mmHg ABG pO2 (Temp Correct ABG HCO3 (19-31) mmol/L ABG O2 Saturation (95-98) % ABG Base Excess (-2.0-2.0) Respiration Rate Ventilator Type Vent Mode FiO2 Inspiratory Time PEEP Pressure Support Pressure Control EPAP IPAP BiPAP Sodium (133-145) mmol/L Potassium (3.5-5.0) mmol/L Chloride (101-111) mmol/L Carbon Dioxide (22-32) mmol/L Anion Gap (2-11) mmol/L BUN (6-24) mg/dL Creatinine (0.51-0.95) mg/dL Est GFR ( Amer) (>60) Est GFR (Non-Af Amer) (>60) BUN/Creatinine Ratio (8-20) Glucose (70-100) mg/dL Lactic Acid 2.3 H* (0.5-2.0) mmol/L Calcium (8.6-10.3) mg/dL Total Bilirubin (0.2-1.0) mg/dL AST (13-39) U/L ALT (7-52) U/L Alkaline Phosphatase (34-104) U/L Total Creatine Kinase (10-223) U/L CK-MB (CK-2) (0.6-6.3) ng/mL Troponin I (<0.04) ng/mL C-Reactive Protein (< 5.00) mg/L B-Natriuretic Peptide ( - 100) pg/mL Total Protein (6.4-8.9) g/dL Albumin (3.2-5.2) g/dL Globulin (2-4) g/dL Albumin/Globulin Ratio (1-3) Influenza A (Rapid) Negative (Negative) Influenza B (Rapid) Negative (Negative) 08/05/17 Range/Units 10:35 WBC (3.5-10.8) 10^3/ul RBC (4.0-5.4) 10^6/ul Hgb (12.0-16.0) g/dl Hct (35-47) % MCV (80-97) fL MCH (27-31) pg MCHC (31-36) g/dl RDW (10.5-15) % Plt Count (150-450) 10^3/ul MPV (7.4-10.4) um3 Neut % (Auto) (38-83) % Lymph % (Auto) (25-47) % Hale % (Auto) (1-9) % Eos % (Auto) (0-6) % Baso % (Auto) (0-2) % Absolute Neuts (auto) (1.5-7.7) 10^3/ul Absolute Lymphs (auto) (1.0-4.8) 10^3/ul Absolute Monos (auto) (0-0.8) 10^3/ul Absolute Eos (auto) (0-0.6) 10^3/ul Absolute Basos (auto) (0-0.2) 10^3/ul Absolute Nucleated RBC 10^3/ul Nucleated RBC % APTT (26.0-36.3) seconds Patient Temperature Not Reportable ABG pH 7.34 L (7.35-7.45) ABG pH (Temp Correct) Not Reportable ABG pCO2 50 H (35-45) mmHg ABG pCO2 (Temp Corrct Not Reportable ABG pO2 69 L (80-100) mmHg ABG pO2 (Temp Correct Not Reportable ABG HCO3 25.3 (19-31) mmol/L ABG O2 Saturation 96.0 (95-98) % ABG Base Excess 0.6 (-2.0-2.0) Respiration Rate Not Reportable Ventilator Type Not Reportable Vent Mode Not Reportable FiO2 3 Inspiratory Time Not Reportable PEEP Not Reportable Pressure Support Not Reportable Pressure Control Not Reportable EPAP Not Reportable IPAP Not Reportable BiPAP Not Reportable Sodium (133-145) mmol/L Potassium (3.5-5.0) mmol/L Chloride (101-111) mmol/L Carbon Dioxide (22-32) mmol/L Anion Gap (2-11) mmol/L BUN (6-24) mg/dL Creatinine (0.51-0.95) mg/dL Est GFR ( Amer) (>60) Est GFR (Non-Af Amer) (>60) BUN/Creatinine Ratio (8-20) Glucose (70-100) mg/dL Lactic Acid (0.5-2.0) mmol/L Calcium (8.6-10.3) mg/dL Total Bilirubin (0.2-1.0) mg/dL AST (13-39) U/L ALT (7-52) U/L Alkaline Phosphatase (34-104) U/L Total Creatine Kinase (10-223) U/L CK-MB (CK-2) (0.6-6.3) ng/mL Troponin I (<0.04) ng/mL C-Reactive Protein (< 5.00) mg/L B-Natriuretic Peptide ( - 100) pg/mL Total Protein (6.4-8.9) g/dL Albumin (3.2-5.2) g/dL Globulin (2-4) g/dL Albumin/Globulin Ratio (1-3) Influenza A (Rapid) (Negative) Influenza B (Rapid) (Negative) Microbiology and Other Data: Microbiology 08/06/17 20:21 Gram Stain - Final Sputum Expectorated Sputum Culture - Final YEAST Normal Jolly 08/05/17 17:31 Nasal Screen MRSA (PCR)([facility]) - Final Nasal Mrsa Not Detected Assess/Plan/Problems-Billing Assessment: 81 yo F h/o sAS, recent pyelo s/p nephrostomy p/w acute respiratory failure in setting of decompensated heart failure - Patient Problems (1) Diastolic heart failure Comment: torsemide started 08/09 weaned to nasal cannula (2) Aortic stenosis Comment: Critical , valve area 0.4 cm2 on echo 08/05/17. She had refused repari 4 yrs ago. Hospice consult requested. Dr. Bang discussed this with her daughter, Meryl. Torsemide 20 mg po daily started 08/09 Goal to maintain neutral fluid balance from here on. KCL ordered to start 08/08. Received 500cc 08/11 for hypotension (3) Dementia Comment: Her eating is erratic, likely not enough to sustain her. (4) End of life care Comment: SL MS, atropin, lorazepam PRN ordered. Status and Disposition: home with hospice to sign on
[2017-08-11] MEDS: Mometasone 220 MCG MDI INH SCH (22:10)
--- NOTE | 2017-08-12 01:28 | PN ---
Progress Note - Progress Note Date of Service: 08/12/17 Note: Paged for fall out of bed - patient managed to slip out of side of bed - when found she was half on floor - head not on floor. Denies any complaints on command. Alert and interactive. No pain over hip or shoulder joints b/l. Does not appear to have hit her head. No further workup.
[2017-08-12] MEDS: Lisinopril TAB* 10 MG PO SCH (08:57)
[2017-08-12] MEDS: Torsemide TAB* 20 MG PO SCH (08:57)
[2017-08-12] MEDS: Potassium Chlor TAB* 20 MEQ TAB.ER PO SCH (08:57)
[2017-08-12] MEDS: Digoxin TAB* 0.125 MG PO SCH (08:57)
[2017-08-12] MEDS: LORazepam TAB(*) 0.5 MG PO PRN (11:47)
[2017-08-12 12:24] VITALS: BP 93/80
--- NOTE | 2017-08-13 13:53 | DS ---
CC: Dr. Butler * DISCHARGE SUMMARY: DATE OF ADMISSION: 08/05/17 DATE OF DISCHARGE: 08/12/17 PRIMARY CARE PROVIDER: Dr. Butler. PRIMARY DIAGNOSES: 1. Acute hypoxic respiratory failure. 2. Critical aortic stenosis. 3. Severe systolic heart failure. SECONDARY DIAGNOSES: Include: 1. Recent pyelonephritis with nephrostomy tube in place. 2. Atrial fibrillation. 3. Asthma. 4. Coronary artery disease. 5. Hypertension. DISPOSITION ON DISCHARGE: Home to initiate hospice. MEDICATIONS ON DISCHARGE: Include: 1. Alvesco two puffs twice daily. 2. Digoxin 0.125 mg daily. 3. Torsemide 20 mg daily. 4. Potassium chloride 20 mEq daily. 5. Roxanol 5 mg every 2 hours as needed for pain or dyspnea. 6. Lorazepam 0.5 mg sublingual every 4 hours as needed for anxiety. 7. Atropine 1% two drops sublingual every 2 hours as needed for excessive secretions or comfort. 8. Artificial tears one drop both eyes every 2 hours as needed for comfort. HISTORY OF PRESENT ILLNESS AND HOSPITAL COURSE: This is an 81-year-old female, who presented to the hospital with acute hypoxic respiratory failure, requiring ICU stay. The patient's volume status was managed, had tenuous volume status, was diuresed heavily and breathing stabilized. She was ultimately transitioned out of the ICU and also oral torsemide with excellent effect. However, her underlying dementia had progressed and ultimately deteriorated to level of consciousness, alert and oriented x0. She ate very little and became more lethargic. She was awake on the day of discharge; however, it was thought she was a good candidate for palliative and hospice care services. She was evaluated by Dr. Larios, who agreed to qualify for hospice and discussed this with the patient's daughter. She would like to attempt to deliver hospice at home. She gives ample support at this time. The patient will be discharged to sign out with hospice tomorrow. The patient has required very little Ativan, morphine, or atropine during the course of her hospital stay. At followup please; ensure comfort measures. If the patient remains comfortable , discontinue additional medications as deemed necessary. [id number]/CPS #: [id number] MTDD
== END 2017-08-12 17:20 | disposition hospice, home (50) | DRG 291 ==
LOC: ED 09:57 → ICU 12:55 → MEDTELE 08-07 15:37 → MED 08-10 14:47
PROVIDERS: ADMIT Internal Medicine; ATTEND Internal Medicine
PROC: 5A09457 Assistance with Respiratory Ventilation, 24-96 Consecutive Hours, Continuous Positive Airway Pressure (ICD-10-PCS; principal; 2017-08-05)
DX: I11.0 Hypertensive heart disease with heart failure (principal); R57.0 Cardiogenic shock; J96.01 Acute respiratory failure with hypoxia; E87.2 Acidosis; N17.9 Acute kidney failure, unspecified; I50.43 Acute on chronic combined systolic (congestive) and diastolic (congestive) heart failure; I48.91 Unspecified atrial fibrillation; Z51.5 Encounter for palliative care; F03.90 Unspecified dementia, unspecified severity, without behavioral disturbance, psychotic disturbance, mood disturbance, and anxiety; I08.3 Combined rheumatic disorders of mitral, aortic and tricuspid valves; J45.909 Unspecified asthma, uncomplicated; I25.10 Atherosclerotic heart disease of native coronary artery without angina pectoris; M19.90 Unspecified osteoarthritis, unspecified site; R41.0 Disorientation, unspecified; R73.9 Hyperglycemia, unspecified; Z66 Do not resuscitate; Z88.5 Allergy status to narcotic agent; Z88.8 Allergy status to other drugs, medicaments and biological substances; Z93.6 Other artificial openings of urinary tract status; Z97.4 Presence of external hearing-aid; Z85.3 Personal history of malignant neoplasm of breast
CPT/HCPCS: 36415; 36600; 71045; 80048; 80053; 81003; 81015; 82550; 82553; 82803; 83605; 83735; 83880; 84100; 84484; 85014; 85018; 85025; 85049; 85610; 85730; 86140; 87040; 87070; 87086; 87205; 87502; 87641; 93306; 94640; 94660; 94760; 99285; A9270-GY; J0456; J0696; J1120; J1642; J1940; J2060; J2270; J3475